=== PATIENT | female | born 1945 | race Caucasian/White ===

== ENCOUNTER 2016-09-24 18:45 | Inpatient (IN) | payer MEDICARE ==
[~2016-09-24] VITALS: Ht 157.5 cm; Wt 54.0 kg
--- NOTE | 2016-09-24 01:00 | NUR ---
PT REQUESTED PAIN MEDICATION. NO ORDERS NOTED AT THIS TIME. CALLED RUSLAN FOR ALFREDO. NEW ORDERS GIVEN FOR PO PAIN MEDICATION DOCUMENTED IN EMAR.
[2016-09-24 19:43] LABS: BASOPHILS 0.2 % (0.0-2.0); EOSINOPHILS 3.8 % (0-7); HEMATOCRIT 44.4 % (36.0-48.0); HEMOGLOBIN 14.4 g/dL (12-16); IMMATURE GRANULOCYTES 0.1 % (0-5); LYMPHOCYTES 35.4 % (15-50); MCH 30.4 pg (26.0-34.0); MCHC 32.4 g/dL (31.0-37.0); MCV 93.9 fL (80.0-100.0); MEAN PLATELET VOLUME 11.5 fL (7.4-10.4); MONOCYTES 8.8 % (2-11); NEUTROPHILS 51.7 % (40-80); PLATELET COUNT 190 10x3/uL (130-400); RBC 4.73 10x6/uL (4.00-5.40); RDW 12.5 % (11.5-14.5)
[2016-09-24 19:53] LABS: APTT 26.3 SECONDS (22.8-39.4); INR 0.99 (0.85-1.17); PROTIME 12.9 SECONDS (11.6-15.0)
[2016-09-24 19:59] LABS: APPEARANCE CLEAR (CLEAR); BILIRUBIN NEGATIVE (NEGATIVE); COLOR YELLOW (YELLOW); GLUCOSE NEGATIVE (NEGATIVE); KETONE NEGATIVE (NEGATIVE); LEUKOCYTE ESTERASE NEGATIVE (NEGATIVE); NITRITE NEGATIVE (NEGATIVE); PROTEIN NEGATIVE (NEGATIVE); UROBILINOGEN NORMAL (NORMAL)
[2016-09-24 19:59] LABS: ALBUMIN 4.2 g/dL (3.4-5.0); ALKALINE PHOSPHATASE 99 U/L (46-116); ALT (SGPT) 18 U/L (10-68); BILIRUBIN - TOTAL 0.27 mg/dL (0.2-1.3); CALC OSMOLALITY 291 mosm/kg (275-300); CALCIUM 8.8 mg/dL (8.5-10.1); CARBON DIOXIDE 33.9 mmol/L (21.0-32.0); CHLORIDE - SERUM 105 mmol/L (98-107); CREATININE - SERUM 0.6 mg/dL (0.6-1.3); GLUCOSE 92 mg/dL (74-106); POTASSIUM - SERUM 4.4 mmol/L (3.5-5.1); PROTEIN - SERUM 7.4 g/dL (6.4-8.2); SODIUM 146 mmol/L (136-145); UREA NITROGEN 14 mg/dL (7-18); eGFR NON AFRICAN AMERICAN > 90 mL/min (90-120)
[2016-09-24 20:09] LABS: CKMB 1.1 U/L (0.0-3.6); CREATINE KINASE 103 UL (21-215)
[2016-09-24 20:17] LABS: TROPONIN-I < 0.017 ng/mL (0.000-0.060)
--- NOTE | 2016-09-24 21:42 | NUR ---
PT TO THE FLOOR FROM ER VIA STRETCHER. AAOX4, RESP EVEN AND UNLABORED ON ROOM AIR.
--- NOTE | 2016-09-24 23:00 | NUR ---
PT'S FRIEND VISITED AND IS CONCERNED ABOUT LULU'S HEALTH AND NEED OF PRIMARY CARE MOVING FORWARD. SHE IS VERY INTERESTED IN FOLLOWING UP WITH DR. FUENTES A PCP. CASEMANAGEMENT TO CONSULT FOR SERVICES.
[2016-09-24 23:15] VITALS: BP 142/47; BMI 21.8
[2016-09-25] VITALS: BP 117/41
--- NOTE | 2016-09-25 03:00 | NUR ---
PT RESTING QUIETLY, RESP EVEN AND UNLABORED ON ROOM AIR, NO S/S OF DISTRESS NOTED, CALL LIGHT IN REACH, WILL CONTINUE TO MONITOR.
[2016-09-25 04:00] VITALS: BP 130/52
--- NOTE | 2016-09-25 07:00 | NUR ---
REPORT RECIEVED ASSUMED CARE. PATIENT IN BED WITH IV INTACT. NO COMPLAINTS. CALL LIGHT WITHIN REACH.
[2016-09-25 08:21] VITALS: BP 121/41
[2016-09-25 11:51] VITALS: BP 128/44
[2016-09-25 12:43] VITALS: Ht 157.5 cm; Wt 54.0 kg
--- NOTE | 2016-09-25 17:00 | NUR ---
PATIENT RECIEVED PAIN MEDS FOR LEFT SHOULDER PAIN AT THIS TIME. NO OTHER COMPLAINTS. CALL LIGHT WITHIN REACH.
[2016-09-25 17:27] VITALS: BP 130/41
--- NOTE | 2016-09-25 18:55 | NUR ---
PATIENT IN BED WITH NO COMPLAINTS AT THIS TIME. IV INTACT. CALL LIGHT WITHIN REACH.
--- NOTE | 2016-09-25 19:00 | NUR ---
PATIENT AAOX4 IN BED. RR EVEN AND UNLABORED. 0 S/S OF DISTRESS. STATES PAIN IS A 9/10 BUT IT IS TOO EARLY FOR PAIN MEDICATION. IV TO RIGHT S/L WITH NO REDNESS OR SWELLING. SCD'S IN ROOM BUT OFF. B/A ON. SRX2. BED LOW. CALL LIGHT WITHIN REACH.
[2016-09-25 20:00] VITALS: BP 182/62
--- NOTE | 2016-09-25 20:00 | NUR ---
PATIENT SITTING IN CHAIR BRUSHING HAIR. LINENS AND GOWN CHANGED.
--- NOTE | 2016-09-25 22:45 | NUR ---
PATIENT BACK IN BED VISITING WITH VISITOR. TELEMETRY INITIATED PER ORDER. NORCO GIVEN FOR PAIN.
[2016-09-26] VITALS: BP 184/59
[2016-09-26 04:00] VITALS: BP 180/57
--- NOTE | 2016-09-26 05:05 | NUR ---
CLONIDINE GIVEN FOR BP OF 180/57. NORCO GIVEN FOR PAIN.
[2016-09-26 06:11] LABS: BASOPHILS 0.2 % (0.0-2.0); HEMATOCRIT 38.8 % (36.0-48.0); HEMOGLOBIN 12.3 g/dL (12-16); IMMATURE GRANULOCYTES 0.2 % (0-5); MCH 29.9 pg (26.0-34.0); MCHC 31.7 g/dL (31.0-37.0); MCV 94.4 fL (80.0-100.0); MEAN PLATELET VOLUME 11.7 fL (7.4-10.4); MONOCYTES 12.3 % (2-11); NEUTROPHILS 50.3 % (40-80); RBC 4.11 10x6/uL (4.00-5.40); RDW 12.6 % (11.5-14.5)
[2016-09-26 06:38] LABS: PLATELET COUNT 151 10x3/uL (130-400); WBC 4.7 10x3/uL (4.8-10.8)
[2016-09-26 06:43] LABS: CALC OSMOLALITY 288 mosm/kg (275-300); CALCIUM 8.3 mg/dL (8.5-10.1); CARBON DIOXIDE 30.1 mmol/L (21.0-32.0); CHLORIDE - SERUM 107 mmol/L (98-107); CHOL - HDL RATIO 2.6 ratio (2.3-4.1); CHOLESTEROL, TOTAL 161 mg/dL (0-200); CREATININE - SERUM 0.6 mg/dL (0.6-1.3); GLUCOSE 89 mg/dL (74-106); HDL CHOLESTEROL 63 mg/dL (32-96); LDL CHOLESTEROL 58 mg/dL (0-100); LDL-HDL RATIO 0.9 ratio (1.5-3.5); SODIUM 145 mmol/L (136-145); UREA NITROGEN 15 mg/dL (7-18); eGFR NON AFRICAN AMERICAN > 90 mL/min (90-120)
[2016-09-26 06:44] LABS: POTASSIUM - SERUM 3.7 mmol/L (3.5-5.1); TRIGLYCERIDE 201 mg/dL (30-200)
--- NOTE | 2016-09-26 07:00 | NUR ---
REPORT RECIEVED ASSUMED CARE. PATIENT IN BED WITH IV INTACT. NO COMPLAINTS. CALL LIGHT WITHIN REACH.
--- NOTE | 2016-09-26 09:15 | NUR ---
Patient Name: LULU SLATER Admission Status: ER Accout number: [id number] Admission Date: 09-24-2016 : 1945 Admission Diagnosis: Attending: ALFREDO Current LOS: 2 Anticipated DC Date: 09-27-2016 Planned Disposition: Home Primary Insurance: MEDICARE A & B Discharge Planning Comments: CM MET WITH PATIENT (BLIND) REGARDING D/C NEEDS AND PLANS. PATIENT STATED SHE LIVES ALONE AND HER LANDLORD (STEVE VIEIRA) WILL DRIVE HER HOME AT DISCHARGE. PATIENT STATED SHE HAS NO STEPS OR STAIRS AT HER HOME. PATIENT STATED SHE HAS NO PCP AND DOES NOT TAKE ANY MEDICATION. PATIENT CHOSE [facility] [address] IF MEDS ARE NEEDED AT DISCHARGE. PATIENT STATED SHE IS INDEPENDENT WITH HER CARE AND HAS NO DME AT HOME. PATIENT STATED THE CONTACT FLORIN SANTILLAN ON HER FACE SHEET HAS . PATIENTS LANDLORD (MR. VIEIRA) TAKES HER WHERE SHE NEEDS TO GO AND HELPS BUY GROCERIES. PATIENT REFUSED HOME HEALTH OR ANY OTHER NEEDS FOR DISCHARGE. CM WILL CONTINUE TO FOLLOW PATIENT WITH D/C NEEDS AND PLANS. PCP NONE [facility] [address] ( [phone] ) STEVE VIEIRA (FRIEND AND LANDLORD) [id number] Chief Medical Physicist: Zakia Skinner Is the patient Alert and Oriented? Yes 0 * How many steps to enter\exit or inside your home? 0 0 * PCP NONE 0 * Pharmacy CHOSE [facility] [address] PATIENT DOES NOT TAKE ANY MEDS 0 * Preadmission Environment Home Alone 0 * ADLs Independent 0 * Equipment None 0 * List name and contact numbers for known caregivers / representatives who currently or will assist patient after discharge: STEVE VIEIRA (LANDLORD-FRIEND) [phone] * Community resources currently utilized None 0 * Additional services required to return to the preadmission environment? Yes 0 * Can the patient safely return to the preadmission environment? Yes 0 * Has this patient been hospitalized within the prior 30 days at any hospital? No 0 Grand Total: 0
[2016-09-26 09:44] VITALS: BP 113/54
[2016-09-26 11:11] VITALS: BP 120/64
[2016-09-26 15:50] VITALS: BP 103/61
--- NOTE | 2016-09-26 16:00 | NUR ---
PATIENT ASSISTED TO SHOWER AT THIS TIME. BED CHANGED, PATIENT IN SHOWER WITH NO COMPLAINTS. ASSISTED BACK TO BED, TEETH BRUSHED, CALL LIGHT WITHIN REACH.
--- NOTE | 2016-09-26 18:30 | NUR ---
PATIENT IN BED WITH IV INTACT. NO COMPLAINTS AT THIS TIME. CALL REJIW TAMIKO MULTANI. STATED HER RIGHT ARM IS BETTER TODAY AND IS ABLE TO MOVE IT MORE WITHOUT PAIN.
--- NOTE | 2016-09-26 19:40 | NUR ---
RECIEVED SHIFT REPORT. PT IS LYING IN BED. ALERT AND ORIENTED AND ABLE TO VERBALIZE NEEDS. IV IS PATENT AND SALINE LOC AT THIS TIME. PT IS AMBULATORY WITH ASSISTANCE. PT STATES PAIN IS 3/10. NO NEEDS ARE VERBALIZED AT THIS TIME. WILL CONTINUE TO MONITOR. SIDE RAILS ARE UP X 2. BED IS IN LOWEST POSITION. CALL LIGHT IS WITHIN REACH.
--- NOTE | 2016-09-26 20:16 | NUR ---
SHIFT ASSESSMENT COMPLETED. PT C/O PAIN 12/11. ADMINISTERED PRESCRIBED PRN NORCO PER ORDER. NO FURTHER NEEDS ARE VOICED. WILL MONITOR. SIDE RAILS X 2. BED LOW. CALL LIGHT IN REACH.
[2016-09-26 20:32] VITALS: BP 132/57
[2016-09-27 04:00] VITALS: BP 131/40
--- NOTE | 2016-09-27 07:32 | NUR ---
WALKING ROUNDS,WITHOUT DISTRESS.ASSESSMENT PER FLOW SHEET.PT UP AT BEDSIDE.PLAN OF CARE REVIEWED.CALL LIGHT IN REACH
[2016-09-27 08:09] VITALS: BP 123/49
--- NOTE | 2016-09-27 09:49 | NUR ---
SITTING UP AT BEDSIDE,WITHOUT DISTRESS.SHOWER AND MAKE UP.CALL LIGHT IN REACH
--- NOTE | 2016-09-27 10:27 | NUR ---
CM REASSESSMENT NOTE: PATIENT HAS AGREED TO HOME HEALTH AND REFERRAL WILL BE SENT TO [facility] AND THE DREW FORM SIGNED. PATIENT HAS NO OTHER NEEDS FOR DISCHARGE. THE IMM WAS SERVED AND SIGNED.
[2016-09-27] MEDS ORDERED: CATAPRES0.1 MG PO (10:38)
[2016-09-27] MEDS ORDERED: ZOLOFT50 MG PO (10:38)
[2016-09-27] MEDS ORDERED: ECOTRIN325 MG PO (10:38)
[2016-09-27 11:26] LABS: BASOPHILS 0.3 % (0.0-2.0); EOSINOPHILS 2.8 % (0-7); HEMATOCRIT 38.1 % (36.0-48.0); HEMOGLOBIN 12.1 g/dL (12-16); IMMATURE GRANULOCYTES 0.1 % (0-5); LYMPHOCYTES 30.6 % (15-50); MCH 30.2 pg (26.0-34.0); MCHC 31.8 g/dL (31.0-37.0); MEAN PLATELET VOLUME 11.7 fL (7.4-10.4); MONOCYTES 11.5 % (2-11); NEUTROPHILS 54.7 % (40-80); PLATELET COUNT 142 10x3/uL (130-400); RBC 4.01 10x6/uL (4.00-5.40); RDW 12.3 % (11.5-14.5)
[2016-09-27 11:38] LABS: WBC 7.2 10x3/uL (4.8-10.8)
[2016-09-27 11:40] VITALS: BP 151/51
[2016-09-27 11:49] LABS: ALBUMIN 3.1 g/dL (3.4-5.0); ALKALINE PHOSPHATASE 180 U/L (46-116); ALT (SGPT) 130 U/L (10-68); BILIRUBIN - TOTAL 0.42 mg/dL (0.2-1.3); CALC OSMOLALITY 282 mosm/kg (275-300); CALCIUM 8.3 mg/dL (8.5-10.1); CARBON DIOXIDE 35.5 mmol/L (21.0-32.0); CHLORIDE - SERUM 104 mmol/L (98-107); CREATININE - SERUM 0.5 mg/dL (0.6-1.3); GLUCOSE 100 mg/dL (74-106); POTASSIUM - SERUM 3.7 mmol/L (3.5-5.1); PROTEIN - SERUM 6.5 g/dL (6.4-8.2); SODIUM 142 mmol/L (136-145); UREA NITROGEN 12 mg/dL (7-18); eGFR NON AFRICAN AMERICAN > 90 mL/min (90-120)
--- NOTE | 2016-09-27 14:30 | NUR ---
DISCHARGE INSTRUCTIONS BY TOMMY KAT RN.PT STATES UNDERSTANDING.IV DCD WITH CATH INTACT.
--- NOTE | 2016-09-27 15:31 | NUR ---
LEFT UNIT VIA WHEELCHAIR FOR TRANSPORT HOME
--- NOTE | 2016-10-01 14:54 | EC ---
PATIENT:LULU SLATER DATE OF SERVICE: 09/24/16 SEX: F MEDICAL RECORD: [id number] DATE OF : [birth year] LOCATION:D.MS Nguyen221 AGE OF PATIENT: 71 ADMISSION DATE: 09/24/16 REFERRING PHYSICIAN: INTERPRETING PHYSICIAN: NAPOLEON ZUNIGA M.D. ECHOCARDIOGRAM REPORT ECHO CHARGES 4 ECHO COMPLETE CLINICAL DIAGNOSIS: TIA HX CAD/STENTS ECHOCARDIOGRAPHIC MEASUREMENTS (adult normal given) AC root (d.<3.7cm) 3.7 LV Septum d (<1.2 cm> 14.3 Valve Excursion 2.3 LV Septum (systole) 1.6 Left Atria (s.<4.0cm> 3.2 LVPW d(<1.2cm) 1.5 RV (d.<2.3cm) 2.6 LVPW (sytole) 1.8 LV diastole(<5.6CM) 4.6 MV E-F(>70mm/sec) LV systole 2.7 LVOT Diameter 1.7 MV exc.(>10mm) 1.3 Est.ejection fraction (50-75%) Pericardial Effusion N DOPPLER: LVIT A 43.0 E 116 LA RVSP 36 LVOT 104 AOP1/2T Asc. Ao 171 RVOT 82 RA PA 103 AV Gradient Peak 11.65 AV Mean 5.62 AV Area 1.6 MV Gradient Peak 11.0 MV Mean 3.0 MV Area COMMENTS: Cementer Machine Applicator: Lelo ZAMARRIPA Vp Packaging:2 Dr. Zuniga TAPE# PACS DATE OF SERVICE: 09/26/2016 REFERRING PHYSICIAN: Jun Navarrete MD. INDICATION: TIA, coronary artery disease. DESCRIPTION: Left ventricle appears normal size and function. No wall motion abnormalities are noted, ejection fraction is 55%. Mitral valve is structurally normal. There is mild regurgitation seen. Left atrium is normal in size. The aortic valve is trileaflet. There is no stenosis or regurgitation seen. The ECHOCARDIOGRAM REPORT [id number] LULU SLATER right ventricle is mildly dilated. Tricuspid valve is normal. There is mild regurgitation noted. Right atrium is normal size. There is no pericardial effusion seen. IMPRESSION: 1. Normal left ventricular size and function, ejection fraction 55%. 2. No evidence of any mass or thrombus in the left ventricle apex. 3. Mild mitral regurgitation. 4. Mild tricuspid regurgitation. TRANSINT:[id number] Voice Confirmation ID: [id number] DOCUMENT ID: [id number] NAPOLEON ZUNIGA M.D. at 1454 CC: [id number] DICTATION DATE: 09/26/16 1348 BLADE CHANGER: 09/27/16 0021 DIS IN 09/27/16 [place] [id number] [place] [id number]
== END 2016-09-27 15:33 | disposition home health service (06) | DRG 69 ==
LOC: D.ER 18:45 → D.MS 20:07
PROVIDERS: Family Medicine; Nurse Practitioner Acute Care; ADMIT Family Medicine
DX: G45.9 Transient cerebral ischemic attack, unspecified (principal); I16.0 Hypertensive urgency; R53.1 Weakness; H54.0 Blindness, both eyes; S43.402A Unspecified sprain of left shoulder joint, initial encounter; X58.XXXA Exposure to other specified factors, initial encounter

== ENCOUNTER 2016-10-13 13:09 | Emergency (ER) | payer MEDICARE ==
[2016-09-25 12:43] VITALS: BMI 21.7
[~2016-10-13 13:09] MED LIST: CATAPRES0.1 MG PO; ECOTRIN325 MG PO; ZOLOFT50 MG PO
[2016-10-13 14:37] LABS: BASOPHILS 0.3 % (0.0-2.0); EOSINOPHILS 3.6 % (0-7); HEMOGLOBIN 13.6 g/dL (12-16); IMMATURE GRANULOCYTES 0.2 % (0-5); LYMPHOCYTES 27.9 % (15-50); MCH 30.6 pg (26.0-34.0); MCHC 32.4 g/dL (31.0-37.0); MCV 94.4 fL (80.0-100.0); MEAN PLATELET VOLUME 11.7 fL (7.4-10.4); MONOCYTES 8.4 % (2-11); NEUTROPHILS 59.6 % (40-80); RBC 4.45 10x6/uL (4.00-5.40); RDW 12.2 % (11.5-14.5); WBC 6.4 10x3/uL (4.8-10.8)
[2016-10-13 14:38] LABS: PLATELET COUNT 179 10x3/uL (130-400)
[2016-10-13 14:48] LABS: ALBUMIN 3.6 g/dL (3.4-5.0); ALKALINE PHOSPHATASE 109 U/L (46-116); ALT (SGPT) 22 U/L (10-68); CALC OSMOLALITY 278 mosm/kg (275-300); CALCIUM 9.2 mg/dL (8.5-10.1); CHLORIDE - SERUM 104 mmol/L (98-107); CREATININE - SERUM 0.7 mg/dL (0.6-1.3); GLUCOSE 89 mg/dL (74-106); POTASSIUM - SERUM 3.9 mmol/L (3.5-5.1); PROTEIN - SERUM 6.9 g/dL (6.4-8.2); SODIUM 141 mmol/L (136-145); UREA NITROGEN 9 mg/dL (7-18); eGFR NON AFRICAN AMERICAN 88 mL/min (90-120)
[2016-10-13 15:26] LABS: APPEARANCE CLEAR (CLEAR); BILIRUBIN NEGATIVE (NEGATIVE); COLOR YELLOW (YELLOW); GLUCOSE NEGATIVE (NEGATIVE); KETONE NEGATIVE (NEGATIVE); LEUKOCYTE ESTERASE NEGATIVE (NEGATIVE); NITRITE NEGATIVE (NEGATIVE); PROTEIN NEGATIVE (NEGATIVE); UROBILINOGEN NORMAL (NORMAL)
== END 2016-10-13 18:26 | disposition home or self-care (01) ==
LOC: D.ER 13:09
PROVIDERS: Family Medicine
DX: I10 Essential (primary) hypertension (principal); F32.9 Major depressive disorder, single episode, unspecified; T16.1XXA Foreign body in right ear, initial encounter; X58.XXXA Exposure to other specified factors, initial encounter; Y93.89 Activity, other specified; Y92.89 Other specified places as the place of occurrence of the external cause; H60.501 Unspecified acute noninfective otitis externa, right ear; F17.200 Nicotine dependence, unspecified, uncomplicated

== ENCOUNTER → 2016-11-04 19:10 | Outpatient (CLI) | payer MEDICARE ==
[2016-09-25 12:43] VITALS: BMI 21.7
[2016-11-04 20:00] LABS: APPEARANCE CLEAR (CLEAR); BILIRUBIN NEGATIVE (NEGATIVE); COLOR YELLOW (YELLOW); GLUCOSE NEGATIVE (NEGATIVE); KETONE NEGATIVE (NEGATIVE); LEUKOCYTE ESTERASE NEGATIVE (NEGATIVE); NITRITE NEGATIVE (NEGATIVE); PROTEIN 1+ mg/dL (NEGATIVE); SPECIFIC GRAVITY 1.015 (1.005-1.020); UROBILINOGEN NORMAL (NORMAL)
[2016-11-04 20:03] LABS: BACTERIA NONE SEEN /hpf (NONE SEEN); EPITHELIAL CELLS 0-5 /hpf (0-5); RED CELLS - URINE 0-5 /hpf (0-5); WHITE CELLS - URINE NSEEN /hpf (0-5)
== END | disposition home or self-care (01) ==
LOC: D.LABREF 19:10
PROVIDERS: Family Medicine
DX: I10 Essential (primary) hypertension (principal); R32 Unspecified urinary incontinence

== ENCOUNTER 2019-03-23 11:07 | Inpatient (IN) | payer MEDICARE ==
[~2019-03-23] VITALS: Ht 162.6 cm; Wt 61.2 kg
[2019-03-23 11:48] LABS: HEMATOCRIT 39.3 % (36.0-48.0); HEMOGLOBIN 12.9 g/dL (12-16); LYMPHOCYTES 37.2 % (15-50); MCH 29.4 pg (26.0-34.0); MCHC 32.8 g/dL (31.0-37.0); MCV 89.5 fL (80.0-100.0); MEAN PLATELET VOLUME 11.1 fL (7.4-10.4); NEUTROPHILS 58.6 % (40-80); PLATELET COUNT 145 10x3/uL (130-400); RBC 4.39 10x6/uL (4.00-5.40); RDW 11.7 % (11.5-14.5); WBC 6.5 10x3/uL (4.8-10.8)
[2019-03-23 11:55] LABS: APTT 27.5 SECONDS (22.8-39.4); INR 1.02 (0.85-1.17); PROTIME 12.9 SECONDS (11.6-15.0)
[2019-03-23 11:59] LABS: ALBUMIN 3.6 g/dL (3.4-5.0); ALKALINE PHOSPHATASE 93 U/L (46-116); ALT (SGPT) 16 U/L (10-68); CALC OSMOLALITY 294 mosm/kg (275-300); CALCIUM 9.2 mg/dL (8.5-10.1); CARBON DIOXIDE 31.9 mmol/L (21.0-32.0); CHLORIDE - SERUM 107 mmol/L (98-107); CREATININE - SERUM 0.8 mg/dL (0.6-1.3); GLUCOSE 128 mg/dL (74-106); POTASSIUM - SERUM 3.5 mmol/L (3.5-5.1); PROTEIN - SERUM 7.3 g/dL (6.4-8.2); SODIUM 146 mmol/L (136-145); UREA NITROGEN 18 mg/dL (7-18); eGFR NON AFRICAN AMERICAN 75 mL/min (90-120)
[2019-03-23 12:26] LABS: CHOLESTEROL, TOTAL 147 mg/dL (0-200); HDL CHOLESTEROL 73 mg/dL (32-96); LDL CHOLESTEROL 61 mg/dL (0-100); LDL-HDL RATIO 0.8 ratio (1.5-3.5); MAGNESIUM - SERUM 1.8 mg/dL (1.8-2.4); THYROID STIMULATING HORMONE 1.64 uIU/mL (0.36-3.74); TRIGLYCERIDE 68 mg/dL (30-200)
--- NOTE | 2019-03-23 12:50 | NUR ---
HAND OFF REPORT RECEIVED FROM RAVEN SOSA.
--- NOTE | 2019-03-23 14:11 | NUR ---
DAUGHTER AND GRANDDAUGHTER AT BEDSIDE, STATED "HOTEL MANAGER TOOK PT HERE."
--- NOTE | 2019-03-23 14:30 | NUR ---
PT ACCEPTED FROM [facility].
[2019-03-23 14:39] LABS: APPEARANCE CLOUDY (CLEAR); BILIRUBIN NEGATIVE (NEGATIVE); COLOR YELLOW (YELLOW); GLUCOSE NEGATIVE (NEGATIVE); KETONE NEGATIVE (NEGATIVE); NITRITE POSITIVE (NEGATIVE); PROTEIN TRACE mg/dL (NEGATIVE); SPECIFIC GRAVITY 1.005 (1.005-1.020); UDS - AMPHET NEGATIVE QUAL (NEGATIVE); UDS - BARB NEGATIVE QUAL (NEGATIVE); UDS - BENZO NEGATIVE QUAL (NEGATIVE); UDS - COCAINE NEGATIVE QUAL (NEGATIVE); UDS - OPIATE NEGATIVE QUAL (NEGATIVE); UDS - PCP NEGATIVE QUAL (NEGATIVE); UDS - THC NEGATIVE QUAL (NEGATIVE); UROBILINOGEN NORMAL (NORMAL)
[2019-03-23 14:40] LABS: BACTERIA MANY /hpf (NEGATIVE); EPITHELIAL CELLS 0-5 /hpf (0-5); MUCUS <1+ /lpf (NONE SEEN); RED CELLS - URINE RARE /hpf (0-5)
[2019-03-23 14:50] VITALS: BP 154/79
[2019-03-23] MEDS ORDERED: TRAZODONE HCL150 MG PO (16:36)
[2019-03-23] MEDS ORDERED: LIPITOR20 MG PO (16:36)
[2019-03-23] MEDS ORDERED: DILANTIN100 MG PO (17:07)
--- NOTE | 2019-03-23 17:45 | NUR ---
The patient is admitted from the medical floor. Apprently she is acutely psychotic. She is ambulatory, but she is blind. She is labile. At first she said she was ok to be here. Asked her if she wanted to be a DNR or a full code this question irritated her and she then said "I want to go home now." Joked with her a few minutes and she calmed down. She does have a rash on her chest and her buttocks.
[2019-03-23 19:25] VITALS: BP 152/110; BMI 22.3
[2019-03-23 21:26] VITALS: BP 110/55
[2019-03-24 07:36] LABS: LDL-HDL RATIO 0.8 ratio (1.5-3.5); PHENYTOIN (DILANTIN) 0.8 ug/mL (10.0-20.0); THYROID STIMULATING HORMONE 1.57 uIU/mL (0.36-3.74)
--- NOTE | 2019-03-24 08:28 | NUR ---
B) The patient is labile in affect. She is laughing and joking one minute, then irritable the next. She ambulates, but she is blind. A lot of questions that staff ask she will say "I can't remember or I don't know." I) Provide prescribed meds. R) The patient says she needs her seizure meds and she needs her depression meds. P) Continue POC.
[2019-03-24 10:35] VITALS: BMI 22.3
[2019-03-24 14:47] VITALS: Ht 162.6 cm; Wt 61.2 kg
--- NOTE | 2019-03-24 18:29 | NUR ---
PT IS UPSET STATING "THEY DIDN'T TELL ME ANYTHING. THEY FRANCHESKA GET ME HOME SOON THEY CAN. [facility]ING [facility]. Y'ALL CAN'T DO THIS TO ME. I DON'T WANT ANYONE TO TAKE CARE OF ME. I DID NOT LEARN ALL OF THAT FOR ME TO BE IN A PLACE LIKE THIS" PT LAUGHS OUT LOUD TO HERSELF, TALKS TO PEOPLE NOT THERE. PT CAN BE PLESANT AT TIMES.
[2019-03-24 19:10] VITALS: BP 190/86
[2019-03-24 20:36] VITALS: BP 185/66
--- NOTE | 2019-03-24 21:30 | NUR ---
REC'D IN DAYROOM. AMBULATORY HOWEVER IS BLIND. DOES NOT INTERACT WITH PEERS HOWEVER TALKS WITH STAFF WHEN APPROACHED. RASH ON CHEST AND BUTTOCKS. ORIENTED TO SELF AND PLACE. ADMINISTER MEDS PER ORDERS Q SHIFT AND MONITOR COMPLIANCE. MONITOR FOR DISRUPTIVE BEHAVIORS IE THROWING THINGS AND CURSING AND REDIRECT NEEDED. MED COMPLIANT. NO DISRUPTIVE BEHAVIOR OBSERVED AND COOPERATIVE WITH STAFF REQUEST. CONTINUE POC AND PROVIDE SAFE ENVIRONMENT.
--- NOTE | 2019-03-24 22:45 | NUR ---
PATIENT IS PLEASANT, COMPLIANT WITH MEDS, CAN MAKE NEEDS KNOWN, NOT WITNESSING ANY HALLUCINATIONS AT THIS TIME. WILL FOLLOW POC
[2019-03-25 08:00] VITALS: BP 141/76
--- NOTE | 2019-03-25 16:48 | NUR ---
PT IS AWAKE AND ALERT TO PERSON ONLY. CALM AND COOPERATIVE WITH ASSESSMENT. MED COMPLAINT. REDIRECT AND REORIENT NEEDED. NO BEHAVIORS NOTED AT THIS TIME. FALL PRECAUTIONS IN PLACE. WILL CPOC.
--- NOTE | 2019-03-25 20:39 | NUR ---
RECEIVED IN DAYROOM. SITTING IN A CHAIR WITH PEERS AT HER SIDE. HAVING HALLUCINATIONS AT TIMES. STATING THAT SHE IS SEEING A WOMAN AND GOD WILL TAKE CARE OF HER. REDIERECT AND REORIENT NEEDED. IN BATHROOM WITH MHT ASSISTING HER AT THIS TIME. CONTINUE PLAN OF CARE
[2019-03-25 22:48] VITALS: BP 125/83
[2019-03-26 08:00] VITALS: BP 132/66
--- NOTE | 2019-03-26 16:24 | NUR ---
PT IS AWAKE AND ALERT TO PERSON ONLY. PT SITTING IN DAYROOM WITH PEERS. CALM AND COOPERATIVE WITH ASSESSMENT. MED COMPLIANT. PT DOES TALK TO UNSEEN OTHERS. REDIRECT AND REORIENT NEEDED. FALL PRECAUTIONS IN PLACE. WILL CPOC.
[2019-03-26 20:23] VITALS: BP 143/89
--- NOTE | 2019-03-26 22:11 | NUR ---
RECEIVED IN DAYROOM. SITTING QUIETLY IN A CHAIR WITH PEERS AT HER SIDE. CALM AND COOPERATIVE WITH CARE AND ASSESSMENT. NO SIGNS OF AGGRESSION. REDIERCT AND REORIENT NEEDED. RESTING CALMLY AT THIS TIME. CONTINUE PLAN OF CARE
[2019-03-27 08:00] VITALS: BP 113/62
[2019-03-27 08:11] LABS: RAPID PLASMA REAGIN Non Reactive (Non Reactive)
--- NOTE | 2019-03-27 12:54 | NUR ---
PT IS AWAKE AND ALERT TO PERSON. CALM AND COOERATIVE WITH ASSESSMENT. MED COMPLIANT. REDIRECT AND REORIENT NEEDED. FALL PRECAUTIONS IN PLACE. WILL CPOC.
[2019-03-27 20:10] VITALS: BP 120/65
--- NOTE | 2019-03-27 22:53 | NUR ---
RECEIVED IN DAYROOM. SITTING IN A CHAIR WITH PEERS AT HER SIDE. CALM AND COOPERATIVE WITH CARE AND ASSESSMENT. IN GOOD SPIRITS. REDIRECT AND REORIENT NEEDED. RESTING IN BED WITH EYES CLOSED AT THIS TIME. CONTINUE PLAN OF CARE
[2019-03-28 09:11] VITALS: BP 143/85
--- NOTE | 2019-03-28 13:26 | NUR ---
PATIENT IS ALERT AND ORIENTED TO PERSON ONLY, COMPLIANT WITH MEDICATIONS. CALM AND COOPERATIVE WITH CARE AND ASSESSMENT. REDIRECT AND REORIENT NEEDED. FALL PRECAUTIONS IN PLACE. WILL CPOC.
[2019-03-28 20:55] VITALS: BP 143/81
--- NOTE | 2019-03-29 01:54 | NUR ---
REC'D SITTING IN THE DAYROOM. PATIENT IS BLIND HOWEVER RELATES SHE LIVES ALONE AND CARES FOR HERSELF. RELATES SHE DIDN'T KNOW SHE WAS COMING HERE AND DOES NOT KNOW HOW SHE GOT HERE. WANTING NURSE TO CHECK TO SEE HOW SHE GOT HERE. BECOMES FRUSTRATED WITH OTHER PATIENTS WHEN THEY ARE DOING REPETATIVE BEHAVIORS OR NOISES. OBSERVED CURSING FOR NO REASON AND WHEN ASKED THE REASON SHE WAS CURSING SHE RELATED SHE WAS CUSSING AT THESE PEOPLE POINTING IN THE DIRECTION WHERE NOBODY WAS SITTING. IMPATIENT AND BECOMES AGITATED IF HAS TO WAIT FOR WHAT SHE IS WANTING. ADMINISTER MEDS PER ORDERS Q SHIFT AND MONITOR COMPLIANCE. REDIRECT FOR CURSING AND DISRUPTIVE BEHAVIOR. MED COMPLIANT. WHEN BEING REDIRECTED PATIENT WILL RELATE DON'T USE MY BLINDNESS AGAINST ME. CONTINUE POC AND PROVIDE SAFE ENVIRONMENT.
[2019-03-29 09:26] VITALS: BP 135/75
--- NOTE | 2019-03-29 10:11 | NUR ---
B) The patient is awake and alert. She is pleasant. She is labile, but quiet at this time. She has not shown any aggression today. She is sitting away from others and she is appropriate in speech and interactions. I) Provide prescribed meds. R) The patient is compliant with meds and unit milieu. P) Continue POC.
--- NOTE | 2019-03-29 12:42 | NUR ---
NUTRITION F/U CHART REVIEWED. PT TOLERATING REG DIET WITH 100% INTAKE MEALS. WT STABLE. WILL CONTINUE TO PROVIDE DIET AND MONITOR. RD FOLLOWING
[2019-03-29 20:01] VITALS: BP 134/84
--- NOTE | 2019-03-29 23:15 | NUR ---
PATIENT IS ORIENTED TO SELF AND SITUATION, SHE ALSO KNOWS THAT SHE IS IN THE HOSPITAL, SHE IS COMPLIANT WITH MEDS, SHE DOES HAVE HALLUCINATIONS THAT SHE BECOMES AGGRAVATED WITH AND HOLLERS AND USES PROFANTITY BUT SHE DID NOT DO THAT THIS EVENING. CAN MAKE NEEDS KNOWN. WILL FOLLOW POC
--- NOTE | 2019-03-30 08:00 | NUR ---
B) The patient is awake, she is unable to see, but she ambulates with some assistance. She is pleasant and calm. She is interacting with staff and peers. No hallucinations noted today and no inappropriate laughing noted. I) Provide prescribed meds. R) The patient is compliant with meds. P) Continue POC.
[2019-03-30 08:30] VITALS: BP 137/64
[2019-03-30 20:00] VITALS: BP 121/76
--- NOTE | 2019-03-31 00:42 | NUR ---
B.) PT IS ALERT AND ORIENTED TO SELF AND SITUATION. SHE AMBULATES WITH ASSISTANCE. PT HAS ATHLETE'S FEET ON HER FEET, A RASH ON HER RIGHT CHEST, AND RIGHT BUTTOCK. PT STATES SORENESS IN HER RIGHT SHOULDER. I.) PROVIDED PM MEDICATION, APPLIED TOPICAL OINTMENT ORDERED TO 3 LOCATIONS, AND VOLTAREN GEL TO HER SHOULDER. R.) COMPLIANT WITH ALL MEDICATIONS. P.) CONTINUE PLAN OF CARE
[2019-03-31 08:00] VITALS: BP 118/79
--- NOTE | 2019-03-31 10:28 | NUR ---
B) The patient is awake and alert, she is pleasant. She is positive and she is encouraging to other patients and staff. She is blind and she needs assist with ambulating places and knowing her meds. She is not mentioning any hallucinations today. I) Provide prescribed meds. R) The patient is compliant with meds. P) Continue POC.
--- NOTE | 2019-03-31 14:30 | NUR ---
The patient has asked multiple times to call her son because she says he does not know where she is and she is sure he would come pick her up. She says she is turned around she thinks it is night time. Tried to redirect and it took several times telling her and now she is engaged in a conversation with another patient.
[2019-03-31 21:05] VITALS: BP 170/47
--- NOTE | 2019-03-31 22:52 | NUR ---
B.) PT IS ASLEEP ON COUCH IN DAYROOM. AROUSES TO VOICE EASILY. SHE IS PLEASANT AND COOPERATIVE. SHE IS ABLE TO MAKE HER NEEDS KNOWN. I.) PROVIDED PM MEDICATIONS. R.) COMPLIANT WITH ALL MEDICATIONS. P.) CONTINUE PLAN OF CARE.
[2019-04-01 08:00] VITALS: BP 143/73
--- NOTE | 2019-04-01 11:00 | NUR ---
B) PATIENT IS AWAKE AND ALERT, ORIENTED TO PERSON AND SITUATION. CALM AND COOPERATIVE WITH CARE AND ASSESSMENT. SHE IS BLIND AND NEEDS TO BE GUIDED TO PLACES. SHE IS PLEASANT AND SOCIABLE WITH STAFF AND PEERS. I) ADMINISTER PRESCRIBED MEDICATIONS. REDIRECT AND REORIENT NEEDED. R) COMPLIANT WITH MEDICATIONS. NO BEHAVIORS NOTED. P) CONTINUE PLAN OF CARE.
--- NOTE | 2019-04-01 20:30 | NUR ---
RECEIVED IN DAYROOM. SITTING IN A CHAIR WITH PEERS AT HER SIDE. CALM AND COOPERATIVE WITH CARE AND ASSESSMENT. NO SIGNS OF AGGRESSION. REDIRECT AND REORIENT NEEDED. CONTINUES TO SIT CALMLY IN CHAIR. CONTINUE PLAN OF CARE
--- NOTE | 2019-04-01 21:12 | NUR ---
PATIENT STATED ANXIETY AND REQUEST SOMETHING FOR ANXIETY. PRN ATIVAN 0.5 MG PO GIVEN FOR ANXIETY.
--- NOTE | 2019-04-01 22:15 | NUR ---
RESTING IN BED WITH EYES CLOSED AT THIS TIME.
[2019-04-01 22:56] VITALS: BP 125/73
[2019-04-02 08:00] VITALS: BP 199/73
--- NOTE | 2019-04-02 08:30 | NUR ---
B/P = 126/90 PULSE= 78 VITAL SIGNS RECHECKED
--- NOTE | 2019-04-02 10:45 | NUR ---
B) PATIENT IS ALERT AND ORIENTED TO SELF AND SITUATION. AMBULATORY WITH ONE PERSON ASSIST. CALM AND COOPERATIVE WITH CARE AND ASSESSMENT. I) ADMINISTER PRESCRIBED MEDICATIONS, CREAM APPLIED TO 3 ATHELET SKIN AREAS, AND OINTMENT APPLIED TO KNEES. R) COMPLIANT WITH ALL MEDICATIONS. REDIRECTS EASILY. P) WILL CONTINUE PLAN OF CARE.
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
--- NOTE | 2019-04-02 12:28 | PN ---
PATIENT:LULU SLATER MEDICAL RECORD: [id number] LOCATION:[facility] Maldonado ADMISSION DATE: 03/23/19 PROGRESS NOTE DATE OF SERVICE: 03/27/2019 SUBJECTIVE: Ms. Slater is a 74-year-old female who was admitted after the trust manager assistant in a motel that she has been staying at brought her to the Emergency Room because she was throwing things, dropping things, obsessive, cursing and we have seen some of that behavior. Yesterday, she was overly exuberant. The patient, on interview today, was calm, pleasant and appropriate. Nursing report says that she has been a little less exuberant, not singing out spontaneously, not parroting other people's conversations as much. She slept 7.75 hours, eating 100% to 175%. Last bowel movement was 23. LAST VITAL SIGNS: 98.1, 63, 18, 113/62, 95%. ASSESSMENT: Unchanged. PLAN: I will get Depakote trough level in 2 days. Discharge disposition is still very much up in the air. She came from a motel apparently and we had a hard time sorting out her social situation with her family and being able to get in touch with any of them. We will work closely with case management to see what a minimum level of structure is needed for this patient. Case discussed with nursing. Chart reviewed and the patient interviewed. TRANSINT:[id number] Voice Confirmation ID: [id number] DOCUMENT ID: [id number] DORETHA MOMIN MD at 1228 CC: [id number] DICTATION DATE: 03/27/19 1528 FREIGHT TRAFFIC CONSULTANT: 03/28/19 0020 ADM IN [place] [id number] [place] [address]
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
--- NOTE | 2019-04-02 12:28 | PN ---
PATIENT:LULU SLATER MEDICAL RECORD: [id number] LOCATION:[facility] Nguyen113 ADMISSION DATE: 03/23/19 PROGRESS NOTE DATE OF SERVICE: 03/26/2019 SUBJECTIVE: Ms. Slater is a 74-year-old female who has had a long history apparently of schizoaffective disorder, unclear whether she has been living in a hotel or her family merely dropped her off at one recently. The patient and chart conflicted on this. The patient has been laughing inappropriately, singing impromptu. She is parroting the conversations of those around her. She, however, is sleeping, slept 8 hours. On interview, she was overly broad, almost nonsensical. She has a history of seizures, but said that she has not been taking seizure meds, eating 75, 90, and 100%. Last bowel movement was on . Her latest vitals are 98.2, 66, 17, 132/66, and 97%. ASSESSMENT: Unchanged. PLAN: Currently on psychotropics of Depakote and Seroquel, which she has been on in the past according to records. We will get a Depakote trough level in the next few days. We will continue to monitor sleep as for Seroquel dosing and continue to UTI treatment. Case discussed with nursing, chart reviewed and patient interviewed. TRANSINT:[id number] Voice Confirmation ID: [id number] DOCUMENT ID: [id number] DORETHA MOMIN MD at 1228 CC: [id number] DICTATION DATE: 03/26/19 1514 BREAKER TENDER: 03/27/19 0106 ADM IN [id number] [place] [address]
--- NOTE | 2019-04-02 12:28 | PN ---
PATIENT:LULU SLATER MEDICAL RECORD: [id number] LOCATION:[facility] Nguyen113 ADMISSION DATE: 03/23/19 PROGRESS NOTE DATE OF SERVICE: 03/30/2019 SUBJECTIVE: The patient is a 74-year-old female whose family dropped off at a hotel, has a history of seizures, blind, throwing things, aggressive behavior. She has a history of schizoaffective disorder and had been by her own admission noncompliant with meds. Her mentation has cleared quickly. However, yesterday she was saying that she wanted to go live in the [facility] apartment by herself. Today, she had come in abrupt change of heart and I believe might be secondary just so wished to discharge and wants to go back to the [facility] where she indeed does have more support there. She slept 8.75 hours, eating 100%, 85%, and 100%. Last bowel movement on . Her latest vital signs are 98.6, 51, 20, 137/64, 93%. Notably, her repeat Depakote what was actually a trough level came from 121.8 at peak to 76.6 at trough. So, now, we will continue current Depakote dosing. Case discussed with nursing. Chart reviewed and the patient interviewed. Anticipate discharge in the next several days if adequate discharge disposition can be arranged discussed. TRANSINT:[id number] Voice Confirmation ID: [id number] DOCUMENT ID: [id number] DORETHA MOMIN MD at 1228 CC: [id number] DICTATION DATE: 03/30/19 1327 LIGHT BULB TESTER: 03/30/19 2108 ADM IN [place] [id number] [place] [address]
--- NOTE | 2019-04-02 12:28 | PN ---
PATIENT:LULU SLATER MEDICAL RECORD: [id number] LOCATION:[facility] Nguyen113 ADMISSION DATE: 03/23/19 PROGRESS NOTE DATE OF SERVICE: 03/29/2019 SUBJECTIVE: Ms. Slater is a 74-year-old female, blind with a history of seizures and schizoaffective disorder who has been living at a motel with apparently a lot of help from her food operations manager with very little family involvement. She decided to come off her meds and had gotten increasingly agitated and apparently torn up to hotel room. The patient's behaviors have gotten increasingly improved. At first, she was loud, singing, and exuberant. Now, she is more calm and subdued. Nursing reports that most of any symptomatology is at night where she gets a little confused and agitated. She told me today that she does not wish to return to the motel, and she wants to get her own apartment; however, considering her limitations, this seems unlikely. We will have the social sciences research scientist talk to her about options. She is sleeping 8.25 hours, eating 100% of meals. Last bowel movement , her latest vital signs are 98.2, 61, 18, 135/75, and 96%. Her valproic acid level from today was 121.8; however, it is unclear whether this was done as a trough or appears to have been done at peak level. Considering her history of seizure disorders, her continuing behavior grandiosity, especially at night, we will redo this Depakote level as an official trough to see what her official trough level is before changing dosing. Case discussed with nursing, chart reviewed, and patient interviewed. TRANSINT:[id number] Voice Confirmation ID: [id number] DOCUMENT ID: [id number] DORETHA MOMIN MD at 1228 CC: [id number] DICTATION DATE: 03/29/19 1626 NETWORK CONTROL OPERATORS SUPERVISOR: 03/30/19 0148 ADM IN [address] [place] [address]
--- NOTE | 2019-04-02 15:20 | NUR ---
CELL PHONE # = [phone] HER JONAH DWIGHT
[2019-04-02 20:22] VITALS: BP 130/64
--- NOTE | 2019-04-02 20:47 | NUR ---
RECEIVED IN DAYROOM. SITTING IN A CHAIR. CALM AND COOPERATIVE WITH CARE AND ASSESSMENT. CALM AND COOPERATIVE WITH CARE AND ASSESSMENT. NO SIGNS OF AGGRESSION. REDIRECT AND REORIENT NEEDED. RESTING QUIETLY IN BED WITH EYES CLOSED AT THIS TIME. CONTINUE PLAN OF CARE
[2019-04-03 08:00] VITALS: BP 105/75
--- NOTE | 2019-04-03 09:00 | NUR ---
B) PATIENT IS AWAKE AND ALERT TO SELF AND SITUATION. CALM AND COOPERATIVE WITH CARE AND ASSESSMENT. AMBULATES WITH ASSISTANCE. I) ADMINISTER PRESCRIBED MEDICATIONS. REDIRECT AND REORIENT NEEDED. R) COMPLIANT WITH MEDICATIONS. SMILING MORE TODAY. P) CONTINUE PLAN OF CARE.
--- NOTE | 2019-04-03 10:18 | PN ---
PATIENT:LULU SLATER MEDICAL RECORD: [id number] LOCATION:[facility] Maldonado ADMISSION DATE: 03/23/19 PROGRESS NOTE DATE OF SERVICE: 03/31/2019 SUBJECTIVE: Ms. Slater is a 74-year-old female who was admitted after she had been having increased aggression, cursing, throwing things. She had not been taking her medications. We had found out that she has been living in a motel with great help from the global logistics manager as a very good Protestant for the last 3-4 years, but as she has torn up 2 hotel rooms, he states he just could not handle her anymore. The patient has been calm, pleasant and appropriate. She has, multiple times, asked for Ativan between 8 and midnight several times for anxiety. She is ready to go back to the motel. We are working with the global logistics manager to get as much help and there is possible, so the patient can remain steady on her medication. She slept 7.5 hours, eating 100% and 115%. Last bowel movement was 26th. ASSESSMENT: Unchanged. PLAN: Anticipate a discharge as soon as social secretary can arrange a stable home environment with as much help as possible, especially with any medications. Case discussed with nursing, chart reviewed, and the patient interviewed. TRANSINT:[id number] Voice Confirmation ID: [id number] DOCUMENT ID: [id number] DORETHA MOMIN MD at 1018 CC: [id number] DICTATION DATE: 04/02/19 1258 LUMBER CUTTER: 04/03/19 0025 ADM IN [place] [id number] [place] [id number]
--- NOTE | 2019-04-03 10:18 | PN ---
PATIENT:LULU SLATER MEDICAL RECORD: [id number] LOCATION:[facility] Nguyen[facility] ADMISSION DATE: 03/23/19 PROGRESS NOTE DATE OF SERVICE: 04/02/2019 SUBJECTIVE: Ms. Slater is a 74-year-old female who was admitted because she was blind, had a history of seizures. She had toured up several motel rooms and her sales promotion manager was about to kick her out. On admission, she was hyperverbal, somewhat grandiose. Since administration of medicines, she is calmer, appropriate, alert and oriented times 3-4. I have talked to counter stacker, sales promotion manager has agreed to have her back, but would like help, especially in administering her medicines. I have discussed this with the patient. She is willing to have people come in to help. She slept 8.25 hours, eating 100%, 100%, and 60%. Last bowel movement on the . ASSESSMENT: Unchanged. PLAN: Anticipate discharge back as soon as much structure is possible, could be brought to the patient's home, especially in regards to her medications. Case discussed with nursing, chart reviewed, and the patient interviewed. TRANSINT:[id number] Voice Confirmation ID: [id number] DOCUMENT ID: [id number] DORETHA MOMIN MD at 1018 CC: [id number] DICTATION DATE: 04/02/19 1202 BOLT MACHINE OPERATOR: 04/02/19 1357 [place] [address]
--- NOTE | 2019-04-03 13:37 | NUR ---
[facility] CALLED TO JESSICA GONZALEZ, FOR DR. PRATER. NEW ORDER RECEIVED AND NOTED.
--- NOTE | 2019-04-03 20:01 | NUR ---
RECEIVED IN BEDROOM. ASSIST TO GET READY FOR BED. CALM AND COOPERATIVE WITH CARE AND ASSESSMENT. NO SIGNS OF AGGRESSION. REDIRECT AND REORIENT NEEDED. RESTING IN BED WITH EYES CLOSED AT THIS TIME. CONTINUE PLAN OF CARE
[2019-04-04 04:19] VITALS: BP 100/56
[2019-04-04 08:25] VITALS: BP 128/79
[2019-04-04 20:19] VITALS: BP 131/76
--- NOTE | 2019-04-04 22:24 | NUR ---
B.) PT IS ALERT AND ORIENTED TO SELF AND SITUATION ONLY. SHE IS PLEASANT WITH STAFF AND PEERS. SHE IS RECIEVED ON THE COUCH IN THE DAYROOM SOCIALIZING. SHE IS ABLE TO MAKE HER NEEDS KNOWN. I.) PROVIDED PM MEDICATIONS. R.) COMPLIANT WITH ALL MEDICATIONS. P.) CONTINUE PLAN OF CARE
[2019-04-05 08:49] VITALS: BP 125/73
--- NOTE | 2019-04-05 09:00 | NUR ---
PATIENT EATING BREAKFAST AND SOCIALIZING WITH OTHER PATIENTS. PT GIGGLES TO SELF AT TIMES. PT IS BLIND. ORIENTED TO SELF AND TIME. POOR INSIGHT TO SITUTION. PT IS COMPLIANT WITH MEDS, ASSESSMENTS AND VITALS. PT AMBULATES WITH ASSISTANCE AND SET UP ASSISTANCE. PT IS ABLE TO MAKE NEEDS KNOWN. PT AT TIMES YELLS OUT BUT APOLOGIZES AFTER REDIRECTION. WILL CONT PLAN OF CARE.
--- NOTE | 2019-04-05 13:27 | NUR ---
Team Treatment Review: Diet: Regular Diet PO intake: 91% avg x 9 meals Wt: (+ 2 lbs) 03/25/2019: 128.8 lbs 04/01/2019: 130.8 lbs BM: x 1 on 04/04 Meds: Vit B 12, Vit D Labs: No new labs since 03/23 PO intake good. Continue current diet as tolerated. Clinical Dietitian Following
--- NOTE | 2019-04-05 14:53 | PN ---
PATIENT:LULU SLATER MEDICAL RECORD: [id number] LOCATION:[facility] ADMISSION DATE: 03/23/19 PROGRESS NOTE DATE OF SERVICE: 04/04/2019 SUBJECTIVE: The patient's case was discussed with staff. She has no new complaint. OBJECTIVE: The patient is in good behavioral control with limited insight about her condition. She has not been aggressive. ASSESSMENT: No change in diagnoses. PLAN: Current medicines and therapies have been reviewed and will be maintained. Long-term prognosis is guarded. TRANSINT:[id number] Voice Confirmation ID: [id number] DOCUMENT ID: [id number] ANA BARBA MD at 1453 CC: [id number] DICTATION DATE: 04/04/19 1630 HOUSEHOLD PERSONAL ASSISTANT: 04/05/19 0026 ADM IN [facility] [address] [place] [address]
[2019-04-05 20:53] VITALS: BP 129/65
--- NOTE | 2019-04-06 03:59 | NUR ---
B) Patient is alert and oriented to person and place, calm and cooperative, happy and laughing at times, I) Administered scheduled medications as ordered, asisted with needs, R) Medication compliant, P) Continue plan of care.
--- NOTE | 2019-04-06 11:20 | NUR ---
PATEINT SITTING AND SOCIALIZING WITH PEERS AT THIS TIME. PT IS FRIENDLY WITH STAFF AND PEERS. PT IS BLIND AND REQUIRES ASSISTANCE WITH AMBULATION. PT IS COMPLIANT WITH ASSESSMENTS, VITALS AND MEDS. WILL CONT PLAN OF CARE.
--- NOTE | 2019-04-06 14:28 | PN ---
PATIENT:LULU SLATER MEDICAL RECORD: [id number] LOCATION:[facility] Patrick113 ADMISSION DATE: 03/23/19 PROGRESS NOTE DATE OF SERVICE: 04/05/2019 SUBJECTIVE: The patient's case was discussed with staff. She has no new complaint. OBJECTIVE: The patient is in good behavioral control. She denies that she would seek to harm herself or others. ASSESSMENT: No change in diagnoses. PLAN: The patient will be maintained on current medications. I am going to check a Depakote level. Her long-term prognosis is guarded. TRANSINT:[id number] Voice Confirmation ID: [id number] DOCUMENT ID: [id number] ANA BARBA MD at 1428 CC: [id number] DICTATION DATE: 04/05/19 1505 OUTPATIENT CLERK: 04/06/19 0019 ADM IN [facility] [address] [place] [address]
[2019-04-06 14:55] VITALS: BP 128/65
[2019-04-06 20:05] VITALS: BP 118/63
--- NOTE | 2019-04-07 01:49 | NUR ---
REC'D SITTING IN THE DAYROOM HOLDING A PEERS HAND. EXPLAINED TO BOTH PATIENTS THAT PHYSICAL CONTACT IS NOT ALLOWED. ORIENTED X3. BELIEVES IS HOSPITALIZED DUE TO HAVING SEIZURES. PATIENT IS BLIND HOWEVER WAS LIVING INDEPENDENTLY. RELATES HAS HAD DIARRHEA. SPOKE ABOUT HAVING [facility] AND IT MAKES HE FEEL LIKE SHE IS SPINNING LIKE IN A HURRICANE. ADMINISTER MEDS AND MONITOR COMPLIANCE. OBSERVE FOR ANGER OUTBURST AND REDIRECT NEEDED. MED COMPLIANT. CALM AND COOPERATIVE AT PRESENT. CONTINUE POC AND PROVIDE SAFE ENVIRONMENT.
[2019-04-07 08:56] VITALS: BP 107/91
[2019-04-07 11:23] VITALS: BP 107/91
--- NOTE | 2019-04-07 12:17 | PN ---
PATIENT:LULU SLATER MEDICAL RECORD: [id number] LOCATION:[facility] Nguyen113 ADMISSION DATE: 03/23/19 PROGRESS NOTE DATE OF SERVICE: 04/06/2019 SUBJECTIVE: The patient's case was discussed with staff. She has no new complaint. OBJECTIVE: The patient is in good behavioral control with limited insight about her condition. She is unsure about what she wants as far as discharge goes. Right now, she is pretty focused on the fact that she does not have her social security check and I do not know who has it and our social insurance administrator has already left for the day. I am afraid that she is not very well comforted by the fact that I am telling her that I feel comfortable it is okay and has gone to whatever location it normally goes to. She says it goes to the extrusion press adjuster of the motel she is staying in, but that does not sound appropriate or correct to me. At any rate, if it has been misappropriated, there may be some inconvenience, but I am sure it can be corrected, it is just simply a matter of me not being able to give her information that would comfort her and she is highly distressed about this check. TRANSINT:[id number] Voice Confirmation ID: [id number] DOCUMENT ID: [id number] ANA BARBA MD at 1217 CC: [id number] DICTATION DATE: 04/06/19 1453 CENTRAL SERVICE TECH: 04/06/19 1607 ADM IN [facility] [address] [place] [address]
--- NOTE | 2019-04-07 14:51 | NUR ---
PT IS AWAKE AND ALERT TO PERSON ONLY. CALM AND COOPERATIVE WITH ASSESSMENT. MED COMPLAINT. NO BEHAVIORS NOTED. REDIRECT AND REORIENT NEEDED. FALL PRECAUTIOSN IN PLACE. WILL CPOC.
[2019-04-07 20:59] VITALS: BP 97/56
--- NOTE | 2019-04-07 22:44 | NUR ---
THIS PATIENT IS PLEASANT MOST OF THE TIME, HOWEVER SHE IS IMPULSIVE AND WILL QUICKLY BECOME ARGUMENTATIVE. SHE IS ABLE TO ASK FOR HER NEEDS AND CAN VOICE CONCERNS. COMPLIANT WITH MEDS. WILL FOLLOW POC
[2019-04-08 08:41] VITALS: BP 140/72
--- NOTE | 2019-04-08 10:51 | PN ---
PATIENT:LULU SLATER MEDICAL RECORD: [id number] LOCATION:[facility] Nguyen113 ADMISSION DATE: 03/23/19 PROGRESS NOTE DATE OF SERVICE: 04/07/2019 SUBJECTIVE: The patient's case was discussed with staff. She has no new complaint. OBJECTIVE: The patient is in good behavioral control with no thoughts of harming herself or others. Her mood is euthymic. ASSESSMENT: No change in diagnoses. PLAN: The patient will be maintained on current medicines. I anticipate she can be discharged soon, but the problem at this point is discharge planning. I think it is inappropriate for her to live in a motel in a very dangerous part of town. TRANSINT:[id number] Voice Confirmation ID: [id number] DOCUMENT ID: [id number] ANA BARBA MD at 1051 CC: [id number] DICTATION DATE: 04/07/19 1228 FIELD CARE MANAGER: 04/07/19 1300 ADM IN [place] [id number] [place] [address]
--- NOTE | 2019-04-08 11:44 | NUR ---
PT SITTING AND SOCIALZING WITH STAFF. PT IS BLIND AND REQUIRES ASSISTANCE WITH AMBULATION. CAN MAKE NEEDS KNOWN. COMPLIANT WITH MEDS, VITALS AND ASSESSMENTS. PT IS VERY FRIENDLY WITH STAFF AND PEERS. PT IS CONFUSED AT TIMES. ORIENTED TO PERSON, PLACE AND TIME. DISORIENTED TO SITUTION. NO BEHAVIORS NOTED THIS SHIFT OR PREVIOUS SHIFT. WILL CONT PLAN OF CARE.
--- NOTE | 2019-04-08 17:40 | NUR ---
DAUGHTER NEW # MARYJO [phone].
--- NOTE | 2019-04-08 20:14 | NUR ---
RECEIVED IN DAYROOM. SITTING IN A CHAIR SOCIALIZING WITH PEERS. CALM AND COOPERATIVE WITH ARE AND ASSESSMENT. NO SIGNS OF AGGRESSION. REDIRECT AND REORIENT NEEDED. RESTING IN BED WITH EYES CLOSED AT THIS TIME. CONTINUE PLAN OF CARE
[2019-04-08 21:33] VITALS: BP 136/90
[2019-04-09 08:00] VITALS: BP 136/64
--- NOTE | 2019-04-09 11:32 | NUR ---
MIGUELITO ATTEMPTED TO CALL DTR[facility], BUT NO RING AND SOUNDS LIKE FAX MACHINE NUMBER. SW ALERTED STAFF PT IS READY FOR DISCHARGE BUT WE DO NEED AN ACCURATE NUMBER AND ADDRESS TO WHERE PT WILL BE DISCHARGED TO.
--- NOTE | 2019-04-09 15:02 | PN ---
PATIENT:LULU SLATER MEDICAL RECORD: [id number] LOCATION:LAT[facility]HA N[facility]yn[address] ADMISSION DATE: 03/23/19 PROGRESS NOTE DATE OF SERVICE: 04/08/2019 SUBJECTIVE: The patient's case was discussed with staff. She has no new complaint. OBJECTIVE: The patient is in good behavioral control and she has no thoughts of harming herself or others. She has had no agitated behavior. ASSESSMENT: Schizoaffective disorder. PLAN: Current medicines have been reviewed and will be maintained. Long-term prognosis is guarded. TRANSINT:[id number] Voice Confirmation ID: [id number] DOCUMENT ID: [id number] ANA BARBA MD at 1502 CC: [id number] DICTATION DATE: 04/08/19 1148 UNIVERSITY LIBRARIAN: 04/08/19 1551 ADM IN [facility] [address] [place] [address]
[2019-04-09] MEDS ORDERED: DEPAKOTE ER500 MG PO (16:18)
[2019-04-09] MEDS ORDERED: VITAMIN B-121000 MCG PO (16:18)
[2019-04-09] MEDS ORDERED: VITAMIN D5000 UNIT PO (16:18)
[2019-04-09] MEDS ORDERED: LIDODERM 5 %1 PATCH TRANSDERM (16:18)
[2019-04-09] MEDS ORDERED: Lamisil Cream TOPICAL (16:18)
[2019-04-09] MEDS ORDERED: SEROquel PO (16:18)
--- NOTE | 2019-04-09 16:38 | NUR ---
PT IS AWAKE AND ALERT TO PERSON. CALM AND COOPERATIVE WITH ASSESSMENT. MED COMPLIANT. REDIRECT AND REORIENT NEEDED. NO BEHAVIORS NOTED AT THIS TIME. PT IS VERY PLEASANT WITH STAFF AND PEERS. FALL PRECAUTIONS IN PLACE. WILL CPOC.
[2019-04-09 20:14] VITALS: BP 135/95
--- NOTE | 2019-04-09 22:34 | NUR ---
RECEIVED IN DAYROOM. SOCIALIZING WITH PEERS. CALM AND COOPEATIVE WITH CARE AND ASSESSMENT. NO AGGRESSIVE BEHAVIORS. REDIRECT AND REORIENT NEEDED. RESTING IN BED WITH EYES CLOSED AT THIS TIME. CONTINUE PLAN OF CARE.
[2019-04-10 07:00] VITALS: BP 138/72
--- NOTE | 2019-04-10 10:59 | NUR ---
REC'D PT IN HALLWAY WITH PEERS. AWAKE AND ALERT TO PERSON ONLY. CALM AND COOPERATIVE WITH ASSESSMENT. REDIRECT AND REORIENT NEEDED. MED COMPLIANT. FALL PRECAUTIONS IN PLACE. WILL CPOC.
--- NOTE | 2019-04-10 14:36 | NUR ---
Nutrition Follow-up: Chart reviewed Diet: Regular PO intake: 75-100% all meals Labs noted: ammonia 41H. Meds noted: lactulose. Skin assessment reviewed. Last BM 04/09/19. Wt: 137# (04/08/19); admit wt: 126# (03/23/19) = +11#. Continue current nutrition regimen. RD Following
--- NOTE | 2019-04-10 14:49 | PN ---
PATIENT:LULU SLATER MEDICAL RECORD: [id number] LOCATION:LATAS[facility] Nguyen113 ADMISSION DATE: 03/23/19 PROGRESS NOTE DATE OF SERVICE: 04/09/2019 SUBJECTIVE: The patient's case was discussed with staff. She has no new complaint. OBJECTIVE: The patient is in good behavioral control with limited insight about her condition. She tolerates her medicines well. She has no thoughts of harming herself or others and no psychotic symptoms. ASSESSMENT: Schizoaffective disorder. PLAN: The patient will be transitioned out of the hospital as soon as her daughter can pick her up. I anticipate that will be tomorrow, but it may be this evening. Adult protective services has approved her to be released to the care of the daughter. TRANSINT:[id number] Voice Confirmation ID: [id number] DOCUMENT ID: [id number] ANA BARBA MD at 1449 CC: [id number] DICTATION DATE: 04/09/19 1614 GREASE WORKER: 04/10/19 0109 ADM IN [id number] [place] [address]
--- NOTE | 2019-04-10 16:29 | NUR ---
PT HAD VISIT FROM DTR, MAGALYS, SHE ATTEMPTED TO MEET WITH PT ABOUT MOVING IN WITH HER FOR A WEEK. PT STATED SHE WAS NOT GOING TO STAY WITH HER AND IT WOULD NOT WORK OUT. PT DID NOT WANT TO PAY THE AMOUNT TO STAY AT THE APARTMENT NEXT DOOR. SHE STATED IT WAS TOO MUCH. PT STATED CALL THE STATE AND PUT ME IN THEIR CUSTODY, THIS IS NOT GOING TO WORK OUT. PT'S DTR ASKED TO LEAVE UNIT AND WAS IN TEARS BY PT'S REACTION. SW COMFORTED DTR AND PUT IN A CALL TO APS.
--- NOTE | 2019-04-10 18:39 | NUR ---
PATIENT HAD OUTBURST OF CURSING DIRECTED AT ANOTHER PATIENT. PATIENTS .
--- NOTE | 2019-04-10 20:49 | NUR ---
RECEIVED IN DAYROOM. SITTING IN A CHAIR WITH PEERS AT HER SIDE. SOCIALIZING AT TIMES. CALM AND COOPERATIVE WITH CARE AND ASSESSMENT. NO SIGNS OF AGGRESSION. RESTING IN BED WITH EYES CLOSED AT THIS TIME. CONTINUE PLAN OF CARE
[2019-04-10 20:59] VITALS: BP 139/84
[2019-04-11 08:00] VITALS: BP 125/59
--- NOTE | 2019-04-11 12:07 | PN ---
PATIENT:LULU SLATER MEDICAL RECORD: [id number] LOCATION:LATASHA Nguyen113 ADMISSION DATE: 03/23/19 PROGRESS NOTE DATE OF SERVICE: 04/10/2019 SUBJECTIVE: The patient's case was discussed with staff. She has no new complaint. OBJECTIVE: The patient is in good behavioral control with limited insight about her condition. She tolerates her medicines well. ASSESSMENT: No change in diagnoses. PLAN: Brief supportive and educational interventions were made. Long-term prognosis is guarded. TRANSINT:[id number] Voice Confirmation ID: [id number] DOCUMENT ID: [id number] ANA BARBA MD at 1207 CC: [id number] DICTATION DATE: 04/10/19 1513 LIBRARY MEDIA ASSISTANT: 04/11/19 0100 ADM IN [place] [address] [place] [address]
--- NOTE | 2019-04-11 18:33 | NUR ---
PATIENT MOSTLY COOPERATIVE THIS SHIFT WITH ONLY ONE OUTBURST NOTED. CONT CONFUSED, MISINTERPRETS AT TIMES. COMPLIANT WITH MEDS. COMPLIANT WITH PLAN OF CARE. CONT POC DIRECTED.
--- NOTE | 2019-04-11 22:40 | NUR ---
RECEIVED IN PATIENT ROOM. RESTING IN BED WITH EYES OPEN. CALM AND COOPERATIVE WITH CARE AND ASSESSMENT. NO AGGRESSIVE BEHAVIORS. REDIRECT AND REORIENT NEEDED. RESTING IN BED WITH EYES CLOSED AT THIS TIME. CONTINUE PLAN OF CARE.
[2019-04-11 22:48] VITALS: BP 120/54
[2019-04-12 08:05] VITALS: BP 154/78
--- NOTE | 2019-04-12 10:50 | NUR ---
PATIENT HAD A SHOWER THIS SHIFT.
--- NOTE | 2019-04-12 12:21 | NUR ---
NUTRITION F/U 75 TO 100% INTAKE RECENT MEALS, REG DIET. INCREASE WT SINCE ADMIT NOTED. BM 04/11/19 WILL CONTINUE TO PROVIDE DIET, MONITOR PO INTAKE AND WT. RD FOLLOWING
--- NOTE | 2019-04-12 12:49 | NUR ---
B) The patient is awake and alert. She is pleasant, she is socializing and talking. She is legally blind but sees shadows. She needs assist with ambulating. I) Provide prescribed meds. R) The patient is compliant with meds and unit milieu. P) Continue POC.
--- NOTE | 2019-04-12 14:38 | PN ---
PATIENT:LULU SLATER MEDICAL RECORD: [id number] LOCATION:LATASHA Nguyen113 ADMISSION DATE: 03/23/19 PROGRESS NOTE DATE OF SERVICE: 04/11/2019 SUBJECTIVE: The patient's case was discussed with staff. She has no new complaint. OBJECTIVE: The patient is in good behavioral control and ready for discharge. Her daughter has not been able to come and get her. The patient is anxious to leave. ASSESSMENT: Schizoaffective disorder. PLAN: The patient will be transitioned out of the hospital as soon as her daughter gets here, she continues to tolerate her medicines well, and certainly has no evidence of acute or direct dangerousness. TRANSINT:[id number] Voice Confirmation ID: [id number] DOCUMENT ID: [id number] ANA BARBA MD at 1438 CC: [id number] DICTATION DATE: 04/11/19 1258 E MARKETING SPECIALIST: 04/11/19 1322 ADM IN [place] [address] [place] [address]
--- NOTE | 2019-04-12 17:46 | NUR ---
DAUGHTER GAVE NURSE INFORMATION OF HER ADDRESS, PHARMACY, PRIMARY DOCTOR, AND PHONE NUMBER: [phone], [facility] [address], PHONE NUMBER: [phone], PRIMARY DOCTOR: TREASURE FUENTES MD AND ERIKA COREY NP, PHONE [phone], [phone], PHARMACY- [facility] AND [facility].
--- NOTE | 2019-04-13 00:11 | NUR ---
B) Patient is alert and oriented to person and place, blind, social with peers and staff, I) Administered scheduled medications as ordered, onitored for needs R) Mediation compliant, pleasant and friendly, P) Continue plan of care.
[2019-04-13 00:43] VITALS: BP 134/64
[2019-04-13 08:44] VITALS: BP 108/62
--- NOTE | 2019-04-13 10:25 | NUR ---
B) The patient is awake and alert, she is in an irritable mood this am, she has stated that she is perturbed. She is being discharged today. She wonders when and at what time. Will fax all paperwork to her PCP. I) Provide prescribed meds. R) The patient is compliant with meds. P) Continue POC.
--- NOTE | 2019-04-13 10:37 | NUR ---
SPOKE WITH PT DAUGHTER ABOUT DISCHARGE THIS SHIFT. NURSE FORWARED HER TO GAS DISTRIBUTION AND EMERGENCY CLERK IN REGARDS TO DISCHARGE PLANNING.
--- NOTE | 2019-04-13 11:56 | NUR ---
Attempted to call the patient's dtr. Edith, left a message to let her know her Mom is d/cing today and we will send her home via a [employer] cab.
--- NOTE | 2019-04-13 12:54 | NUR ---
PT LEFT WITH [facility] AND SERVICE. NURSE EXPLAINED THAT SHE WOULD HAVE TO BE WALKED TO HER DOOR CAUSE SHE IS BLIND. LIST OF MEDICATIONS AND BELONGINGS WAS GIVEN TO DINKEY OPERATOR SLAG. PT WAS STABLE AND VERY EXCITED TO LEAVE. PT IS GOING TO HER DAUGHTERS APARTMENT [facility]. DAUGHTER CALLED AND STAFF NOTIFIED HER OF LEAVING AT THIS TIME.
--- NOTE | 2019-04-13 15:03 | PN ---
PATIENT:LULU SLATER MEDICAL RECORD: [id number] LOCATION:[facility] ADMISSION DATE: 03/23/19 PROGRESS NOTE DATE OF SERVICE: 04/12/2019 SUBJECTIVE: The patient's case was discussed with staff. She has no new complaint. OBJECTIVE: The patient is very angry. I met with the social media editor today. She informed me that adult protective services has decided to take custody of her after she and her daughter had an argument here on the unit. It is clear that they cannot get along and the patient is unable to care for herself. In addition to this, the patient's daughter lives in subsidized housing and cannot have someone else living there, permanently. Based on these facts, the patient is going to be placed in a long-term by adult protective services. TRANSINT:[id number] Voice Confirmation ID: [id number] DOCUMENT ID: [id number] ANA BARBA MD at 1503 CC: [id number] DICTATION DATE: 04/12/19 1451 GEOTHERMAL INSTALLER: 04/12/19 2309 DIS IN 04/13/[address] [facility] [address] [place] [address]
--- NOTE | 2019-04-14 12:31 | PN ---
PATIENT:LULU SLATER MEDICAL RECORD: [id number] LOCATION:[facility] ADMISSION DATE: 03/23/19 PROGRESS NOTE DATE OF SERVICE: 04/13/2019 SUBJECTIVE: The patient's case was discussed with staff. She has no new complaint. OBJECTIVE: The patient is in good behavioral control and has no thoughts of harming herself or others. ASSESSMENT: Schizoaffective disorder. PLAN: The patient interestingly has calmed down significantly. The office of long-term care yesterday denied her retirement placement. When Adult Protective Services was informed of this, they change their mind about retirement placement and are allowing her to go home with her daughter. Her daughter was here yesterday, visited with her and at this time, there was not any kind of a confrontation or flight. Subsequently, at discharge, the patient to home with her daughter today. TRANSINT:[id number] Voice Confirmation ID: [id number] DOCUMENT ID: [id number] ANA BARBA MD at 1231 CC: [id number] DICTATION DATE: 04/13/19 1549 AUTO SERVICE ADVISOR: 04/13/19 2344 DIS IN 04/13/19 [facility] [address] [place] [address]
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
--- NOTE | 2019-05-23 12:26 | PN ---
PATIENT:LULU SLATER MEDICAL RECORD: [id number] LOCATION:[facility] ADMISSION DATE: 03/23/19 PROGRESS NOTE DATE OF SERVICE: 04/03/2019 SUBJECTIVE: Ms. Slater is a 74-year-old female, who was admitted secondary to aggression, cursing, throwing things. The patient has had days of pleasant and cooperative behavior, although nursing reports yesterday when staff was trying to intervene with another patient, the patient suddenly started yelling "they are lying to you, they are lying to you." When asked about today, the patient did not remember it and became rather labile about it saying somewhat dramatically that she apologized and then talking about how no one really supports her, more lability than I have seen, although there is a lot of noise and confusion in the day room now, which might be complicating her mood. She has slept 9.75 hours, eating 100%, 100%, and 90%. Last bowel movement on the . OBJECTIVE: LATEST VITAL SIGNS: 98.2, 57, 17, 105/75, and 97%. ASSESSMENT: Unchanged. PLAN: We will get ammonia level as we have increased her Depakote precipitously, although Depakote level is certainly within normal limits. We are still working on placement. Right now, the plan is to get her back to her motel room with as many services as possible, especially to help with medication management. Case discussed with nursing, chart reviewed and patient interviewed. TRANSINT:[id number] Voice Confirmation ID: [id number] DOCUMENT ID: [id number] DORETHA MOMIN MD at 1226 CC: [id number] DICTATION DATE: 04/03/19 1018 GREETING CARD WRITER: 04/03/19 1235 DIS IN 04/13/19 [place] [id number] [place] [address]
== END 2019-04-13 12:59 | disposition home or self-care (01) | DRG 885 ==
LOC: D.ER 11:07 → D.PSYCH 15:33
PROVIDERS: Family Medicine; ADMIT Psychiatry & Neurology Psychiatry; ATTEND Psychiatry & Neurology Psychiatry
DX: F25.0 Schizoaffective disorder, bipolar type (principal); N39.0 Urinary tract infection, site not specified; F03.91 Unspecified dementia, unspecified severity, with behavioral disturbance; B96.20 Unspecified Escherichia coli [E. coli] as the cause of diseases classified elsewhere; I25.10 Atherosclerotic heart disease of native coronary artery without angina pectoris; H54.7 Unspecified visual loss; B35.4 Tinea corporis; I10 Essential (primary) hypertension; E53.8 Deficiency of other specified B group vitamins; E55.9 Vitamin D deficiency, unspecified; G40.909 Epilepsy, unspecified, not intractable, without status epilepticus; M19.011 Primary osteoarthritis, right shoulder; M16.12 Unilateral primary osteoarthritis, left hip; G89.29 Other chronic pain; M54.5 Low back pain

== ENCOUNTER 2019-04-30 08:19 | Inpatient (IN) | payer MEDICARE ==
[~2019-04-30] VITALS: Ht 162.6 cm; Wt 61.0 kg
[2019-04-30] VITALS (26 sets, daily range): BP systolic 118–222; BP diastolic 45–82; BMI 21.3
[~2019-04-30 08:19] MED LIST changes: +DEPAKOTE ER500 MG PO; +DILANTIN100 MG PO; +LIDODERM 5 %1 PATCH TRANSDERM; +LIPITOR20 MG PO; +Lamisil Cream TOPICAL; +SEROquel PO; +TRAZODONE HCL150 MG PO; +VITAMIN B-121000 MCG PO; +VITAMIN D5000 UNIT PO
[2019-04-30] MEDS ORDERED: TRAZODONE HCL150 MG PO (08:26)
[2019-04-30 09:27] LABS: BASOPHILS 0.2 % (0-2); EOSINOPHILS 1.9 % (0-7); HEMATOCRIT 44.6 % (36.0-48.0); HEMOGLOBIN 14.3 g/dL (12-16); IMMATURE GRANULOCYTES 0.2 % (0-5); LYMPHOCYTES 19.1 % (15-50); MCH 29.8 pg (26.0-34.0); MCHC 32.1 g/dL (31.0-37.0); MCV 92.9 fL (80.0-100.0); MEAN PLATELET VOLUME 11.1 fL (7.4-10.4); MONOCYTES 13.1 % (2-11); NEUTROPHILS 65.5 % (40-80); PLATELET COUNT 138 10x3/uL (130-400); RDW 13.4 % (11.5-14.5); WBC 8.5 10x3/uL (4.8-10.8)
--- NOTE | 2019-04-30 09:29 | NUR ---
PT LEAVING ED VIA STRETCHER FOR ORDERED CT SCANS, IV INFUSION CONTINUES DURING TRANSPORT.
[2019-04-30 09:37] LABS: CALC OSMOLALITY 288 mosm/kg (275-300); CALCIUM 8.8 mg/dL (8.5-10.1); CARBON DIOXIDE 31.2 mmol/L (21.0-32.0); CHLORIDE - SERUM 106 mmol/L (98-107); CREATININE - SERUM 0.6 mg/dL (0.6-1.3); GLUCOSE 92 mg/dL (74-106); POTASSIUM - SERUM 3.3 mmol/L (3.5-5.1); SODIUM 145 mmol/L (136-145); UREA NITROGEN 12 mg/dL (7-18); eGFR NON AFRICAN AMERICAN > 90 mL/min (90-120)
--- NOTE | 2019-04-30 09:45 | NUR ---
PT BACK TO ED AT THIS TIME
[2019-04-30 09:52] LABS: ALBUMIN 3.6 g/dL (3.4-5.0); ALKALINE PHOSPHATASE 82 U/L (46-116); ALT (SGPT) 16 U/L (10-68); BILIRUBIN - TOTAL 0.43 mg/dL (0.2-1.3); CKMB 0.7 U/L (0.0-3.6); CREATINE KINASE 70 UL (21-215); MAGNESIUM - SERUM 1.7 mg/dL (1.8-2.4); PROTEIN - SERUM 7.3 g/dL (6.4-8.2); TROPONIN-I < 0.017 ng/mL (0.000-0.060)
[2019-04-30 10:15] LABS: INR 1.03 (0.85-1.17)
[2019-04-30 10:16] LABS: APTT 26.4 SECONDS (22.8-39.4)
--- NOTE | 2019-04-30 10:37 | NUR ---
PT ASSISTED WITH UNDRESSING. SOLIED BRIEF CHANGED. ALL OF PT'S CLOTHING PLACED IN PT BELONGING BAG. SOLIED LINENS CHANGED.
--- NOTE | 2019-04-30 10:38 | NUR ---
EDP NOTIFIED OF CURRENT BP OF 179/49. NO FURTHER ORDERS RECEIVED
--- NOTE | 2019-04-30 11:50 | NUR ---
SLING APPLIED TO THE LUE DIRECTED PER EDP.
--- NOTE | 2019-04-30 12:55 | NUR ---
PT BACK TO ED AT THIS TIME FROM MEDICAL IMAGING DEPT.
--- NOTE | 2019-04-30 14:23 | NUR ---
PT ARRIVED TO ICU FROM ER. BP 122/57. CARDENE GTT TITRATED DOWN FROM 7.5MG/HR TO 5MG/HR. PT ALERT AND ANSWERS ALL QUESTIONS. DENIES ANY NEEDS AT THIS TIME, WILL CONT TO FOLLOW POC
--- NOTE | 2019-04-30 15:02 | NUR ---
PT BP 125/50. CARDENE TITRATED DOWN FROM 5MG/HR TO 2.5MG/HR.
--- NOTE | 2019-04-30 15:46 | NUR ---
PT BP IS 118/45. CARDENE GTT STOPPED AT THIS TIME.
--- NOTE | 2019-04-30 16:34 | NUR ---
PT RESTING IN BED. VSS AND WNL, BP 138/53 AT THIS TIME. DAUGHTER AT BEDSIDE. WILL CONT TO FOLLOW POC
--- NOTE | 2019-04-30 17:35 | NUR ---
PT RESTING IN BED EATING SUPPER. DENIES ANY NEEDS AT THIS TIME. WILL CONT TO FOLLOW POC
--- NOTE | 2019-04-30 17:39 | NUR ---
NOTIFIED PHARMACY THAT PT NORVASC IS NOT AVAILABLE
--- NOTE | 2019-04-30 19:00 | NUR ---
PT RESTING IN BED. REPORT RECEIVED FROM DAY SHIFT NURSE. SHIFT ASSESSMENT COMPLETED. VSS. WILL CONTINUE TO MONITOR
--- NOTE | 2019-04-30 20:00 | NUR ---
PT HAD EPISODE OF INCONTINENCE. PT CLEANED AND GIVEN CHG BATH. LINENS CHANGED. PT TOLERATED WELL
--- NOTE | 2019-04-30 21:00 | NUR ---
PT RESTING IN BED NOW. AWAKENS EASILY. NO COMPLAINTS NOTED AT THIS TIME. WILL CONTINUE TO MONITOR
--- NOTE | 2019-04-30 23:00 | NUR ---
PT RESTING IN BED. REASSESSMENT COMPLETED. NO SIGNS OF DISTRESS NOTED. VSS. ASKED FOR A SNACK SO PT GIVEN PRAVIN CRACKERS AND SOME MILK. WILL CONTINUE TO MONITOR
[2019-05-01] VITALS (19 sets, daily range): BP systolic 105–169; BP diastolic 46–66; Ht 162.6 cm; Wt 61.0 kg
--- NOTE | 2019-05-01 01:00 | NUR ---
PT RESTING IN BED. AROUSES EASILY. NO COMPLAINTS NOTED AT THIS TIME. VSS. WILL CONTINUE TO MONITOR
--- NOTE | 2019-05-01 03:00 | NUR ---
PT RESTING IN BED. LINEN CHANGE DUE TO INCONTINENCE. NO COMPLAINTS AT THIS TIME. REASSESSMENT COMPLETED. VSS
[2019-05-01 04:45] LABS: BASOPHILS 0.3 % (0-2); EOSINOPHILS 5.1 % (0-7); HEMATOCRIT 41.9 % (36.0-48.0); HEMOGLOBIN 13.3 g/dL (12-16); LYMPHOCYTES 31.9 % (15-50); MCH 29.6 pg (26.0-34.0); MCHC 31.7 g/dL (31.0-37.0); MCV 93.1 fL (80.0-100.0); MEAN PLATELET VOLUME 11.3 fL (7.4-10.4); MONOCYTES 13.9 % (2-11); NEUTROPHILS 48.8 % (40-80); PLATELET COUNT 134 10x3/uL (130-400); RDW 13.6 % (11.5-14.5)
[2019-05-01 04:59] LABS: WBC 6.1 10x3/uL (4.8-10.8)
--- NOTE | 2019-05-01 05:00 | NUR ---
PT RESTING IN BED. NO COMPLAINTS NOTED AT THIS TIME. VSS. WILL CONTINUE TO MONITOR
[2019-05-01 05:06] LABS: ALBUMIN 3.1 g/dL (3.4-5.0); ANION GAP 8.9 mmol/L (8-16); BILIRUBIN - TOTAL 0.43 mg/dL (0.2-1.3); CALCIUM 8.1 mg/dL (8.5-10.1); CARBON DIOXIDE 32.6 mmol/L (21.0-32.0); POTASSIUM - SERUM 3.5 mmol/L (3.5-5.1); PROTEIN - SERUM 6.2 g/dL (6.4-8.2)
[2019-05-01 05:10] LABS: CREATININE - SERUM 0.8 mg/dL (0.6-1.3)
--- NOTE | 2019-05-01 07:00 | NUR ---
RECEIVED BEDSIDE REPORT ON PATIENT AND ASSUMED CARE. PATIENT SITTING UP IN BED, ALERT AND ORIENTED X 4, C/O HEADACHE AND MILD NECK PAIN RATES 3/10, RATES L ELBOW PAIN 0/10. IV BILATERAL FAS 22 GA R INFUSING NS AT 25 CC/HR AND L NSL. BBS - CLEAR AND EQUAL, SPO2 - 96% ON RA. CM - SB RATE OF 55. LEFT ARM IN SLING, READJUSTED FOR COMFORT. HEAD TO TOE ASSESSMENT COMPLETE.
--- NOTE | 2019-05-01 09:18 | NUR ---
PATIENT RESTING QUITELY, VSS. NO NEEDS AT THIS TIME. MORNING MEDS GIVEN PER MAR.
--- NOTE | 2019-05-01 09:52 | NUR ---
DR. CABA AT ROOM UPDATED AND EXAMINES PATIENT. OK TO TRANSFER TO FLOOR. REQUESTS COCKUP SPLINT TO LEFT WRIST AND IV D/C TO LEFT FA. IV DISCONINUED AND SPLINT APPLIED. ARM IN SLING. NS GTT ALSO D/C'D PER DR. CABA. VSS. OK TO MOVE PATIENT TO FLOOR.
--- NOTE | 2019-05-01 11:00 | NUR ---
REASSESMENT COMPLETE, PATIENT RESTING QUIETLY, VSS. STATES NO PAIN AT THIS TIME.
--- NOTE | 2019-05-01 12:38 | NUR ---
PATIENT C/O OF NAUSEA PRN ZOFRAN GIVEN IVP WITH NS FLUSH. PATIENT ATE 90% OF LUNCH. VSS.
--- NOTE | 2019-05-01 13:25 | NUR ---
PT AT ROOM PER CONSULT.
--- NOTE | 2019-05-01 13:51 | NUR ---
PATIENT INCONTINENT OF URINE, LARGE AMOUNT, YELLOW IN COLOR, CLEANED, LINENS AND GOWN CHANGED. PATIENT ASSISTED UP TO BEDSIDE CHAIR. VSS.
--- NOTE | 2019-05-01 14:40 | NUR ---
PATIENT C/O PAIN LEFT ELBOW PAIN AND RIGHT ARM PAIN RATES 8/10, PRN PAIN MED GIVEN PER SEP.
--- NOTE | 2019-05-01 14:54 | NUR ---
PATIENT BACK TO BED WITH ASSIST.VSS.
--- NOTE | 2019-05-01 15:10 | NUR ---
PATIENT RESTING QUIETLY, VSS, NO NEEDS AT THIS TIME.
--- NOTE | 2019-05-01 15:51 | NUR ---
REPORT CALLED TO MILTON CARBAJAL, TO TRANSFER TO ROOM 2238. PATIENT TRANSPORTED WIHT BELONGINGS VIA WHEELCHAIR.
--- NOTE | 2019-05-01 16:20 | NUR ---
RCVED PT VIA WHEELCHAIR AND HOSPITAL STAFF FROM ICU. PT IS ALERT AND ORIENTED WITH NO S/S OF DISTRESS AT THIS TIME. IV LOCATED TO RIGHT FOREARM CURRENTLY SL. VITALS STABLE. DENIES ANYNEEDS AT THIS TIME BUT WILL CONT TO MONITOR.
--- NOTE | 2019-05-01 20:00 | NUR ---
ASSESSMENT PER FLOWSHEET. IV PATENT RT FOREARM KAREN MAT IN USE. PT IS BLIND NOTED AT HEAD OF BED. SR UP X2 CALL LIGHT WITHIN REACH. SLING TO LEFT ARM COCK UP SPLINT TO LEFT WRIST/ARM.
--- NOTE | 2019-05-01 21:52 | NUR ---
C/O PAIN TO LEFT ELBOW FX SITE. TYLENOL 650MGM PO GIVEN FOR PAIN CONTROL.
--- NOTE | 2019-05-01 22:00 | NUR ---
UP TP BR WITH HELP VOIDS WELL.
--- NOTE | 2019-05-02 | NUR ---
EYES CLOSED RESPIRATIONS WITH EASE AND UNLABORED.
[2019-05-02 01:11] VITALS: BP 150/74
--- NOTE | 2019-05-02 01:32 | NUR ---
TELM. ON SHOWS SB WITH HR 58. COMPLETE BED BATH DONE PER CHIEF ENVIRONMENTAL COMMITMENT OFFICER KARLEE.
[2019-05-02 05:43] VITALS: BP 134/80
[2019-05-02 06:16] LABS: BASOPHILS 0.3 % (0-2); EOSINOPHILS 7.7 % (0-7); HEMATOCRIT 37.2 % (36.0-48.0); HEMOGLOBIN 11.7 g/dL (12-16); IMMATURE GRANULOCYTES 0.2 % (0-5); LYMPHOCYTES 33.1 % (15-50); MCH 29.5 pg (26.0-34.0); MCHC 31.5 g/dL (31.0-37.0); MCV 93.9 fL (80.0-100.0); MEAN PLATELET VOLUME 11.7 fL (7.4-10.4); MONOCYTES 11.6 % (2-11); NEUTROPHILS 47.1 % (40-80); PLATELET COUNT 133 10x3/uL (130-400); RBC 3.96 10x6/uL (4.00-5.40); RDW 13.6 % (11.5-14.5); WBC 6.4 10x3/uL (4.8-10.8)
[2019-05-02 06:41] LABS: ALBUMIN 2.7 g/dL (3.4-5.0); ANION GAP 11.7 mmol/L (8-16); BILIRUBIN - TOTAL 0.24 mg/dL (0.2-1.3); CARBON DIOXIDE 30.5 mmol/L (21.0-32.0); CREATININE - SERUM 0.8 mg/dL (0.6-1.3); POTASSIUM - SERUM 4.2 mmol/L (3.5-5.1); PROTEIN - SERUM 5.9 g/dL (6.4-8.2)
--- NOTE | 2019-05-02 07:33 | NUR ---
PT RESTING IN BED WITH EYES CLOSED BREATHING EVEN AND NONLABORED WITH NO S/S OF DISTRESS. IV LOCATED TO RIGHT FA CURRENTLY SL. BED LOW, CALL LIGHT IN REACH, WILL CONT TO MONITOR.
[2019-05-02 08:46] VITALS: BP 175/57
[2019-05-02 12:10] VITALS: BP 152/51
--- NOTE | 2019-05-02 16:18 | MORECARE ---
CASE MANAGEMENT DISCHARGE SUMMARY PATIENT: LULU SLATER UNIT: [id number] ADM DATE: 04/30/19 AGE: 74 : 47 SEX: F ROOM/BED: D.2238 AUTHOR: TYRA TREVINO PHYSICIAN: REFERRING PHYSICIAN: FRANTZ CABA DO DATE OF SERVICE: 05/02/19 Discharge Plan Patient Name: LULU SLATER Facility: [facility]:[place] : 1945 Planned Disposition: Home Anticipated Discharge Date: Discharge Date: Expected LOS: Initial Reviewer: [email or web address] Initial Review Date: 05/02/2019 Generated: 05/02/19 5:17 pm Comments DCP- Discharge Planning Updated by [email or web address]: Lashaun Ramirez on 05/01/19 4:[address] CM attempted to meet with patient regarding discharge planning. Patient requested CM to come back once daughter has arrived. CM requested nursing to call ext [phone] once daughter is here. CM will continue to follow and assist as needed with discharge planning / needs. DCPIA - Discharge Planning Initial Assessment Updated by [email or web address]: Vicki Lincoln on 05/02/19 4:17 pm * Is the patient Alert and Oriented? Yes * PCP No PCP * Pharmacy [facility] * Preadmission Environment Home Alone * ADLs Partial Dependent * Partial ADLs (Assistance needed) Ambulation * Equipment Bedside Commode Cane Walker * List name and contact numbers for known caregivers / representatives who currently or will assist patient after discharge: Edith Fierro [facility] - [phone]? * Verbal permission to speak to the caregivers and representatives has been obtained from the patient. Yes * Community resources currently utilized None * Additional services required to return to the preadmission environment? No * Can the patient safely return to the preadmission environment? Yes * Has this patient been hospitalized within the prior 30 days at any hospital? No Patient Name: LULU SLATER Page [id number] at 1618 All edits/amendments must be made on the electronic document DICTATION DATE: 05/02/19 1617 SALES CLOSER: GABINO 05/02/191616 RPT#: [id number] DC DATE: STATUS: ADM IN [facility] [address] [place] [address] END OF REPORT
--- NOTE | 2019-05-02 16:27 | MORECARE ---
CASE MANAGEMENT DISCHARGE SUMMARY PATIENT: LULU SLATER UNIT: [id number] ADM DATE: 04/30/19 AGE: 74 : 47 SEX: F ROOM/BED: D.2238 AUTHOR: BELINDADOC PHYSICIAN: REFERRING PHYSICIAN: FRANTZ CABA DO DATE OF SERVICE: 05/02/19 Discharge Plan Patient Name: LULU SLATER Facility: [facility]:[place] : 1945 Planned Disposition: Home Anticipated Discharge Date: Discharge Date: Expected LOS: Initial Reviewer: [email or web address] Initial Review Date: 05/02/2019 Generated: 05/02/19 5:27 pm Comments DCP- Discharge Planning Updated by [email or web address]: Vicki Linclon on 05/02/19 3:[address] Patient Name: LULU SLATER Admission Status: Elective Accout number: [id number] Admission Date: 04-30-2019 : 1945 Admission Diagnosis: Attending: FRANTZ CABA Current LOS: 2 Anticipated DC Date: Planned Disposition: Home Primary Insurance: MEDICARE A & B Discharge Planning Comments: CM met with patient to complete initial dc planning assessment. CM educated patient on the CM role and verbal consent given by patient to complete assessment. Patient lives in an apartment next door to her daughter. At discharge patient plans to return and feels this is a safe discharge. CM discussed availability of home health, rehab services, and medical equipment. Patient denied known discharge needs at this time. States that she thinks her daughter is getting her some home care. I attempted to call her daughter at [phone] and left a message on her answering machine to return my call. CM will continue to follow and will assist as needed with dc plans/needs. Lump Inspector: Vicki Lincoln DCP- Discharge Planning Updated by [email or web address]: Lashaun Ramirez on 05/01/19 4:[address] CM attempted to meet with patient regarding discharge planning. Patient requested CM to come back once daughter has arrived. CM requested nursing to call ext [phone] once daughter is here. CM will continue to follow and assist as needed with discharge planning / needs. DCPIA - Discharge Planning Initial Assessment Updated by [email or web address]: Vicki Lincoln on 05/02/19 4:17 pm * Is the patient Alert and Oriented? Yes * PCP No PCP * Pharmacy [facility] * Preadmission Environment Home Alone * ADLs Partial Dependent * Partial ADLs (Assistance needed) Ambulation * Equipment Bedside Commode Cane Walker * List name and contact numbers for known caregivers / representatives who currently or will assist patient after discharge: Edith Fierro - DTR - [phone]? * Verbal permission to speak to the caregivers and representatives has been obtained from the patient. Yes * Community resources currently utilized None * Additional services required to return to the preadmission environment? No * Can the patient safely return to the preadmission environment? Yes * Has this patient been hospitalized within the prior 30 days at any hospital? No Last DP export: 05/02/19 3:18 Patient Name: LULU SLATER Page [id number] at 1627 All edits/amendments must be made on the electronic document DICTATION DATE: 05/02/191626 CORRUGATOR HELPER: GABINO 05/02/191626 RPT#: [id number] DC DATE: STATUS: ADM IN [facility] [address] [place] [address] END OF REPORT
[2019-05-02 16:35] VITALS: BP 155/72
--- NOTE | 2019-05-02 17:13 | MORECARE ---
CASE MANAGEMENT DISCHARGE SUMMARY PATIENT: LULU SLATER UNIT: [id number] ADM DATE: 04/30/19 AGE: 74 : 47 SEX: F ROOM/BED: D.2238 AUTHOR: TYRA TREVINO PHYSICIAN: REFERRING PHYSICIAN: FRANTZ CABA DO DATE OF SERVICE: 05/02/19 Discharge Plan Patient Name: LULU SLATER Facility: [facility]:[place] : 1945 Planned Disposition: Home Anticipated Discharge Date: Discharge Date: Expected LOS: Initial Reviewer: [email or web address] Initial Review Date: 05/02/2019 Generated: 05/02/19 6:13 pm Comments DCP- Discharge Planning Updated by [email or web address]: Vicki Salazar on 05/02/19 4:[address] Patient's daughter returned my call, states they live at [address] [place] [address]. States her mother lives on the bottom floor and she lives on the top floor. States she has an aide that will be assisting her mother 3 hours a day/5 days a week. States she is applying for a night aide to assist with her mother as well. She states that her sister may be able to provide discharge transportation. CM will continue to follow and assist with discharge planning/needs. DCP- Discharge Planning Updated by [email or web address]: Vicki Salazar on 05/02/19 3:[address] Patient Name: LULU SLATER Admission Status: Elective Accout number: [id number] Admission Date: 04-30-2019 : 1945 Admission Diagnosis: Attending: FRANTZ CABA Current LOS: 2 Anticipated DC Date: Planned Disposition: Home Primary Insurance: MEDICARE A & B Discharge Planning Comments: CM met with patient to complete initial dc planning assessment. CM educated patient on the CM role and verbal consent given by patient to complete assessment. Patient lives in an apartment next door to her daughter. At discharge patient plans to return and feels this is a safe discharge. CM discussed availability of home health, rehab services, and medical equipment. Patient denied known discharge needs at this time. States that she thinks her daughter is getting her some home care. I attempted to call her daughter at [phone] and left a message on her answering machine to return my call. CM will continue to follow and will assist as needed with dc plans/needs. State Highway Police Officer: Vicki Nelsonkingsley DCP- Discharge Planning Updated by [email or web address]: Lashaun James on 05/01/19 4:[address] CM attempted to meet with patient regarding discharge planning. Patient requested CM to come back once daughter has arrived. CM requested nursing to call ext [phone] once daughter is here. CM will continue to follow and assist as needed with discharge planning / needs. DCPIA - Discharge Planning Initial Assessment Updated by [email or web address]: Vicki Salazar on 05/02/19 4:17 pm * Is the patient Alert and Oriented? Yes * PCP No PCP * Pharmacy [facility] * Preadmission Environment Home Alone * ADLs Partial Dependent * Partial ADLs (Assistance needed) Ambulation * Equipment Bedside Commode Cane Walker * List name and contact numbers for known caregivers / representatives who currently or will assist patient after discharge: Edith Fierro - DTR - [phone]? * Verbal permission to speak to the caregivers and representatives has been obtained from the patient. Yes * Community resources currently utilized None * Additional services required to return to the preadmission environment? No * Can the patient safely return to the preadmission environment? Yes * Has this patient been hospitalized within the prior 30 days at any hospital? No Last DP export: 05/02/19 3:27 Patient Name: LULU SLATER Page [phone] at 1713 All edits/amendments must be made on the electronic document DICTATION DATE: 05/02/191712 SHAFT MECHANIC: GABINO 05/02/191712 RPT#: [id number] DC DATE: STATUS: ADM IN [facility] [address] [place] [address] END OF REPORT
[2019-05-02 20:00] VITALS: BP 156/49
--- NOTE | 2019-05-02 20:00 | NUR ---
ASSESSMENT PER FLOWSHEET.SLING TO LEFT ARM IN PLACE WITH COCKUP ARM SPLINT TO LEFT ARM. PT IS BLIND. TELM. SHOWS SBRADY WITH HR 56. NO DISTRESS. SCD'S ON.
--- NOTE | 2019-05-02 20:41 | NUR ---
C/O PAIN TO LEFT ARM. ULTRAM 50MG TAB ONE PO GIVEN FOR PAIN CONTROL. UP WITH HELP TO BR VOIDS WELL.SALINE LOCK PATENT RT FOREARM.
--- NOTE | 2019-05-02 22:00 | NUR ---
RESTING QUIETLY DENIES NEEDS.
--- NOTE | 2019-05-03 01:00 | NUR ---
UP TO BSC VOIDS FREELY ASSISTED BACK TO BED.
--- NOTE | 2019-05-03 03:55 | NUR ---
EYES CLOSED ESPIRATIONS WITH EASE AND UNLABORED.
[2019-05-03 04:00] VITALS: BP 187/51
[2019-05-03 05:57] LABS: BASOPHILS 0.3 % (0-2); EOSINOPHILS 3.3 % (0-7); HEMATOCRIT 40.9 % (36.0-48.0); HEMOGLOBIN 12.9 g/dL (12-16); IMMATURE GRANULOCYTES 0.1 % (0-5); LYMPHOCYTES 18.3 % (15-50); MCH 30.1 pg (26.0-34.0); MCHC 31.5 g/dL (31.0-37.0); MCV 95.6 fL (80.0-100.0); MEAN PLATELET VOLUME 11.6 fL (7.4-10.4); MONOCYTES 8.8 % (2-11); NEUTROPHILS 69.2 % (40-80); PLATELET COUNT 128 10x3/uL (130-400); RBC 4.28 10x6/uL (4.00-5.40); RDW 13.6 % (11.5-14.5); WBC 7.1 10x3/uL (4.8-10.8)
[2019-05-03 06:30] LABS: ALBUMIN 3.1 g/dL (3.4-5.0); ALKALINE PHOSPHATASE 83 U/L (46-116); BILIRUBIN - TOTAL 0.33 mg/dL (0.2-1.3); CALC OSMOLALITY 287 mosm/kg (275-300); CALCIUM 8.5 mg/dL (8.5-10.1); CHLORIDE - SERUM 106 mmol/L (98-107); CREATININE - SERUM 0.6 mg/dL (0.6-1.3); GLUCOSE 92 mg/dL (74-106); POTASSIUM - SERUM 4.5 mmol/L (3.5-5.1); PROTEIN - SERUM 6.8 g/dL (6.4-8.2); SODIUM 143 mmol/L (136-145); UREA NITROGEN 22 mg/dL (7-18); eGFR NON AFRICAN AMERICAN > 90 mL/min (90-120)
[2019-05-03 06:31] LABS: ALT (SGPT) 37 U/L (10-68)
--- NOTE | 2019-05-03 07:43 | NUR ---
PT RESTING, EYES CLOSED. RR EVEN AND UNLABORED. SLING AND WRIST CAST NOTED TO LEFT ARM. NO DISTRESS NOTED. BED IN LOWEST POSITION. CALL LIGHT WITHIN REACH. WILL CONTINUE TO MONITOR.
[2019-05-03 08:24] VITALS: BP 128/60; BP 137/65
[2019-05-03 11:51] VITALS: BP 160/52
[2019-05-03] MEDS ORDERED: NORVASC5 MG PO (12:23)
[2019-05-03] MEDS ORDERED: PROTONIX40 MG PO (12:24)
[2019-05-03] MEDS ORDERED: ULTRAM50 MG PO (12:24)
--- NOTE | 2019-05-03 12:50 | MORECARE ---
CASE MANAGEMENT DISCHARGE SUMMARY PATIENT: LULU SLATER UNIT: [id number] ADM DATE: 04/30/19 AGE: 74 : [birth year] SEX: F ROOM/BED: D.2238 AUTHOR: TYRA TREVINO PHYSICIAN: REFERRING PHYSICIAN: FRANTZ CABA DO DATE OF SERVICE: 05/03/19 Discharge Plan Patient Name: LULU SLATER Facility: [facility]:[place] : 1945 Planned Disposition: Home Anticipated Discharge Date: Discharge Date: Expected LOS: Initial Reviewer: [email or web address] Initial Review Date: 05/02/2019 Generated: 05/03/19 1:50 pm Comments DCP- Discharge Planning Updated by [email or web address]: Vicki Lincoln on 05/03/19 11:[address] Caba would like patient to have rehab. I spoke with the patient and she agrees. [facility] rehab screen ordered. I called Maria Fernanda in rehab and she states she will review. I left a message on her daughter, Vincent, answering machine. CM will continue to follow and assist with discharge planning/needs. DCP- Discharge Planning Updated by [email or web address]: Vicki Lincoln on 05/02/19 4:[address] Patient's daughter returned my call, states they live at [address] [place] [address]. States her mother lives on the bottom floor and she lives on the top floor. States she has an aide that will be assisting her mother 3 hours a day/5 days a week. States she is applying for a night aide to assist with her mother as well. She states that her sister may be able to provide discharge transportation. CM will continue to follow and assist with discharge planning/needs. DCP- Discharge Planning Updated by [id number]: Vicki Lincoln on 05/02/19 3:[address] Patient Name: LULU SLATER Admission Status: Elective Accout number: [id number] Admission Date: 04-30-2019 : 1945 Admission Diagnosis: Attending: FRANTZ CABA Current LOS: 2 Anticipated DC Date: Planned Disposition: Home Primary Insurance: MEDICARE A & B Discharge Planning Comments: CM met with patient to complete initial dc planning assessment. CM educated patient on the CM role and verbal consent given by patient to complete assessment. Patient lives in an apartment next door to her daughter. At discharge patient plans to return and feels this is a safe discharge. CM discussed availability of home health, rehab services, and medical equipment. Patient denied known discharge needs at this time. States that she thinks her daughter is getting her some home care. I attempted to call her daughter at [phone] and left a message on her answering machine to return my call. CM will continue to follow and will assist as needed with dc plans/needs. Certified Master Safe Technician: Vicki Lincoln DCP- Discharge Planning Updated by [email or web address]: Lashaun Ramirez on 05/01/19 4:[address] CM attempted to meet with patient regarding discharge planning. Patient requested CM to come back once daughter has arrived. CM requested nursing to call ext [phone] once daughter is here. CM will continue to follow and assist as needed with discharge planning / needs. DCPIA - Discharge Planning Initial Assessment Updated by [email or web address]: Vicki Lincoln on 05/02/19 4:17 pm * Is the patient Alert and Oriented? Yes * PCP No PCP * Pharmacy [facility] on [facility] * Preadmission Environment Home Alone * ADLs Partial Dependent * Partial ADLs (Assistance needed) Ambulation * Equipment Bedside Commode Cane Walker * List name and contact numbers for known caregivers / representatives who currently or will assist patient after discharge: Edith Fierro - DTR - [phone]? * Verbal permission to speak to the caregivers and representatives has been obtained from the patient. Yes * Community resources currently utilized None * Additional services required to return to the preadmission environment? No * Can the patient safely return to the preadmission environment? Yes * Has this patient been hospitalized within the prior 30 days at any hospital? No Coverage Notice Reviewer: [id number] - Vicki Lincoln Notice Issued Date-Time: 05/03/2019 8:13 Notice Type: IM Discharge Notice Notice Delivered To: Patient Relationship to Patient: Self Extractor Filler Name: Delivery Method: HAND - Hand Delivered Alysa Days: Prior Verbal Notification: Recipient Understood Notice: Yes Recipient Signature: Yes Med Rec Note Co-signed by Attending: Coverage Notice Comment: IMM explained, signed, given, copy placed in MR. She states she is ready for discharge and I read the IMM notice to her and informed we would help her dial the phone if needed, voiced understanding. Last DP export: 05/02/19 4:13 Patient Name: LULU SLATER Page [id number] at 1250 All edits/amendments must be made on the electronic document DICTATION DATE: 05/03/191248 CABINET INSTALLER: GABINO 05/03/191248 RPT#: [id number] DC DATE: STATUS: ADM IN [facility] [address] [place] [address] END OF REPORT
--- NOTE | 2019-05-03 14:00 | NUR ---
REHAB PRESCREENING Rehab referral received and chart reviewed. This patient does not have a diagnosis appropriate for acute inpatient rehab in order to meet admission criteria. Recommend skilled rehab placement. Thank you for this referral! Karine Siegel, STRUCTURAL ARCHITECT Rehab PD
[2019-05-03 16:29] VITALS: BP 173/55
--- NOTE | 2019-05-03 17:00 | NUR ---
REPORT CALLED TO CHERI IN REHAB. REQUESTED THE PT BE TRANSFERRED AFTER DINNER.
--- NOTE | 2019-05-03 17:52 | NUR ---
PT ASSISTED GETTING DRESSED. IV D/C TO RIGHT FOREARM WITH CATHETER TIP INTACT. PT UNABLE TO SIGN DUE TO BEING LEGALLY BLIND. REHAB MADE AWARE OF PT COMING DOWN. D/C WITH ALL BELONGINGS VIA WHEELCHAIR TO REHAB FLOOR. MONITOR RETURNED TO VOCATIONAL NURSE.
--- NOTE | 2019-05-05 11:34 | MORECARE ---
CASE MANAGEMENT DISCHARGE SUMMARY PATIENT: LULU SLATER UNIT: [id number] ADM DATE: 04/30/19 AGE: 74 : [birth year] SEX: F ROOM/BED: D.2238 AUTHOR: TYRA TREVINO PHYSICIAN: REFERRING PHYSICIAN: FRANTZ CABA DO DATE OF SERVICE: 05/05/19 Discharge Plan Patient Name: LULU SLATER Facility: [facility]:[place] : 1945 Planned Disposition: Home Anticipated Discharge Date: Discharge Date: 05/03/2019 Expected LOS: Initial Reviewer: [email or web address] Initial Review Date: 05/02/2019 Generated: 05/05/19 12:33 pm Comments DCP- Discharge Planning Updated by [email or web address]: Vicki Lincoln on 05/03/19 11:[address] Caba would like patient to have rehab. I spoke with the patient and she agrees. [facility] rehab screen ordered. I called Maria Fernanda in rehab and she states she will review. I left a message on her daughter, Vincent, answering machine. CM will continue to follow and assist with discharge planning/needs. DCP- Discharge Planning Updated by [id number]: Vicki Lincoln on 05/02/19 4:[address] Patient's daughter returned my call, states they live at [address] [place] [address]. States her mother lives on the bottom floor and she lives on the top floor. States she has an aide that will be assisting her mother 3 hours a day/5 days a week. States she is applying for a night aide to assist with her mother as well. She states that her sister may be able to provide discharge transportation. CM will continue to follow and assist with discharge planning/needs. DCP- Discharge Planning Updated by [email or web address]: Vicki Lincoln on 05/02/19 3:[address] Patient Name: LULU SLATER Admission Status: Elective Accout number: [id number] Admission Date: 04-30-2019 : 1945 Admission Diagnosis: Attending: FRANTZ CABA Current LOS: 2 Anticipated DC Date: Planned Disposition: Home Primary Insurance: MEDICARE A & B Discharge Planning Comments: CM met with patient to complete initial dc planning assessment. CM educated patient on the CM role and verbal consent given by patient to complete assessment. Patient lives in an apartment next door to her daughter. At discharge patient plans to return and feels this is a safe discharge. CM discussed availability of home health, rehab services, and medical equipment. Patient denied known discharge needs at this time. States that she thinks her daughter is getting her some home care. I attempted to call her daughter at [phone] and left a message on her answering machine to return my call. CM will continue to follow and will assist as needed with dc plans/needs. Jewelry Bearing Maker: Vicki Lincoln DCP- Discharge Planning Updated by [email or web address]: Lashaundonald Guillaumer on 05/01/19 4:[address] CM attempted to meet with patient regarding discharge planning. Patient requested CM to come back once daughter has arrived. CM requested nursing to call ext [phone] once daughter is here. CM will continue to follow and assist as needed with discharge planning / needs. DCPIA - Discharge Planning Initial Assessment Updated by [email or web address]: Vicki Lincoln on 05/02/19 4:17 pm * Is the patient Alert and Oriented? Yes * PCP No PCP * Pharmacy [facility] on [address] * Preadmission Environment Home Alone * ADLs Partial Dependent * Partial ADLs (Assistance needed) Ambulation * Equipment Bedside Commode Cane Walker * List name and contact numbers for known caregivers / representatives who currently or will assist patient after discharge: Edith Fierro - DTR - [phone]? * Verbal permission to speak to the caregivers and representatives has been obtained from the patient. Yes * Community resources currently utilized None * Additional services required to return to the preadmission environment? No * Can the patient safely return to the preadmission environment? Yes * Has this patient been hospitalized within the prior 30 days at any hospital? No Coverage Notice Reviewer: [id number] - Vicki Lincoln Notice Issued Date-Time: 05/03/2019 8:13 Notice Type: IM Discharge Notice Notice Delivered To: Patient Relationship to Patient: Self Tag Maker Name: Delivery Method: HAND - Hand Delivered Alysa Days: Prior Verbal Notification: Recipient Understood Notice: Yes Recipient Signature: Yes Med Rec Note Co-signed by Attending: Coverage Notice Comment: IMM explained, signed, given, copy placed in MR. She states she is ready for discharge and I read the IMM notice to her and informed we would help her dial the phone if needed, voiced understanding. Last DP export: 05/03/19 11:50 Patient Name: LULU SLATER Page [id number] at 1134 All edits/amendments must be made on the electronic document DICTATION DATE: 05/05/19 113 SPRING BENDER: GABINO 05/05/19 1133 RPT#: [id number] DC DATE:05/03/19 STATUS: DIS IN [facility] [address] [place] [address] END OF REPORT
== END 2019-05-03 18:00 | DRG 305 ==
LOC: D.ER 08:19 → D.ICU 11:32 → D.MS 11:32
PROVIDERS: Family Medicine; ADMIT Family Medicine; ATTEND Family Medicine
DX: I16.1 Hypertensive emergency (principal); S52.102A Unspecified fracture of upper end of left radius, initial encounter for closed fracture; I10 Essential (primary) hypertension; I25.10 Atherosclerotic heart disease of native coronary artery without angina pectoris; M19.90 Unspecified osteoarthritis, unspecified site; F32.9 Major depressive disorder, single episode, unspecified; F03.90 Unspecified dementia, unspecified severity, without behavioral disturbance, psychotic disturbance, mood disturbance, and anxiety; F20.9 Schizophrenia, unspecified; Z86.73 Personal history of transient ischemic attack (TIA), and cerebral infarction without residual deficits; W19.XXXA Unspecified fall, initial encounter; Y92.009 Unspecified place in unspecified non-institutional (private) residence as the place of occurrence of the external cause

== ENCOUNTER 2019-05-03 16:54 | Inpatient (IN) | payer MEDICARE ==
[~2019-05-03] VITALS: Ht 162.6 cm; Wt 62.1 kg
[~2019-05-03 16:54] MED LIST changes: +NORVASC5 MG PO; +PROTONIX40 MG PO; +ULTRAM50 MG PO
--- NOTE | 2019-05-03 17:55 | NUR ---
RECIEVED FROM ACUTE FLOOR TO ROOM 1112B.ORIENTED TO ROOM AND CL.
[2019-05-03 19:22] VITALS: BP 120/48
--- NOTE | 2019-05-03 19:33 | NUR ---
GREETED PATIENT AND INTRODUCED MYSELF. PATIENT IS LAYING IN BED LISTENING TO TV. RESPIRATIONS EVEN. NO S/S OF DISTRESS. CALL LIGHT IN REACH. DENIES ANY FURTHER NEEDS AT THIS TIME.
[2019-05-03 21:50] VITALS: BP 120/48; BMI 23.5
--- NOTE | 2019-05-03 22:38 | NUR ---
DR BARBA NOTIFIED AND REVIEWED PT's BEHAVIOR AND ASSESSMENT RESULTS. PT IS A LOW RISK PER DR BARBA. DR BARBA STATED TO GIVE RESOURCES TO PT AT TIME OF DISCHARGE. NO FURTHER ORDERS AT THIS TIME. RESOURCES REVIED WITH PT AND SHE VERBALIZED UNDERSTANDING.
--- NOTE | 2019-05-04 00:40 | NUR ---
PATIENT RESTING QUIETLY WITH EYES CLOSED. RESPIRATIONS EVEN. NO S/S OF DISTRESS. CALL LIGHT IN REACH.
[2019-05-04 07:42] LABS: BASOPHILS 0.2 % (0-2); EOSINOPHILS 4.6 % (0-7); HEMATOCRIT 39.6 % (36.0-48.0); HEMOGLOBIN 12.4 g/dL (12-16); IMMATURE GRANULOCYTES 0.2 % (0-5); LYMPHOCYTES 25.4 % (15-50); MCH 29.7 pg (26.0-34.0); MCHC 31.3 g/dL (31.0-37.0); MEAN PLATELET VOLUME 11.2 fL (7.4-10.4); MONOCYTES 11.4 % (2-11); NEUTROPHILS 58.2 % (40-80); PLATELET COUNT 135 10x3/uL (130-400); RBC 4.17 10x6/uL (4.00-5.40); RDW 13.2 % (11.5-14.5); WBC 5.9 10x3/uL (4.8-10.8)
[2019-05-04 07:55] LABS: CALC OSMOLALITY 282 mosm/kg (275-300); CALCIUM 8.4 mg/dL (8.5-10.1); CARBON DIOXIDE 32.1 mmol/L (21.0-32.0); CHLORIDE - SERUM 105 mmol/L (98-107); CREATININE - SERUM 0.5 mg/dL (0.6-1.3); GLUCOSE 82 mg/dL (74-106); POTASSIUM - SERUM 4.1 mmol/L (3.5-5.1); SODIUM 142 mmol/L (136-145); eGFR NON AFRICAN AMERICAN > 90 mL/min (90-120)
[2019-05-04 07:57] VITALS: BP 181/47
[2019-05-04 07:59] LABS: UREA NITROGEN 16 mg/dL (7-18)
--- NOTE | 2019-05-04 08:00 | NUR ---
PATIENT IS ALERT/ORIENT. COMPLETELY BLIND. CALL LIGHT WITHIN REACH. PATIENT ABLE TO USE CALL LIGHT WITH RASIED BUTTON. VOICES NO NEED AT THIS TIME. WILL CONTINUE WITH PLAN OF CARE
--- NOTE | 2019-05-04 09:54 | NUR ---
PATIENT IN REHAB. WORKING WITH PHYSICAL THERAPIST. DENIES ANY PAIN/DISC AT THIS TIME.
--- NOTE | 2019-05-04 10:23 | NUR ---
The patient is participating in physical therapy in the gym and Dr. Billingsley told her "The plan is to get her stronger so that she can go home." The patient is agreeable with that.
--- NOTE | 2019-05-04 10:53 | NUR ---
PATIENT ADMITTED TO REHAB FROM ACUTE FLOOR. HER PCP IS DR. FUETNES. DME AT HOME IS A CANE, WALKER AND A BEDSIDE COMMODE. PATIENT LIVES ALONE BUT HER DAUGHTER LIVES ABOVE HER IN THE APARTMENT BUILDING. DISCHARGE PLANS ARE FOR PATIENT TO RETURN HOME. WILL CONTINUE TO FOLLOW WITH PATIENT.
[2019-05-04 12:18] VITALS: Ht 162.6 cm; Wt 62.1 kg
--- NOTE | 2019-05-04 17:18 | NUR ---
PATIENT IS A MOD ASST FROM BED INTO WHEELCHAIR. SITTING UP IN WHEELCHAIR AT BEDSIDE TO EAT SUPPER.
[2019-05-04 19:00] VITALS: BP 134/47
--- NOTE | 2019-05-04 19:07 | NUR ---
GREETED PATIENT AND INTRODUCED MYSELF HER NURSE. PATIENT IS SITTING IN WHEELCHAIR LISTENING TO TV. RESPIRATIONS EVEN. NO S/S OF DISTRESS. MODIFIED CALL LIGHT IN REACH. STATES THAT PAIN IS 5/10 IN RIGHT SHOULDER.
--- NOTE | 2019-05-05 00:18 | NUR ---
PT. AWAKE AND ASSISTED TO BATHROOM USING WHEELCHAIR. BACK TO BED AND REPOSITIONED FOR COMFORT. CALL LIGHT IN REACH.
--- NOTE | 2019-05-05 06:13 | NUR ---
PT. AWAKE AND CLEANED OF INCONTINENT URINE. PATIENT SITTING IN WHEELCHAIR LISTENING TO TV. MODIFIED CALL LIGHT WITHIN REACH.
[2019-05-05 07:46] VITALS: BP 145/86
--- NOTE | 2019-05-05 08:15 | NUR ---
PT RESTING IN BED WITH EYES OPEN CALL LIGHT IN REACH NO PROBLEMS WILL
--- NOTE | 2019-05-05 08:15 | NUR ---
PT RESTING IN BED WITH EYES OPEN CALL LIGHT IN REACH WILL MONITER
--- NOTE | 2019-05-05 20:00 | NUR ---
PATIENT RECEIVED SITTING UP IN WHEELCHAIR. PATIENT ASSESSMENT & VITAL SIGNS DONE. PATIENT TOILETED & HAD VOID. PATIENT UPPER DENTURE REMOVED. MOUTH RINSED. PATIENT RETURNED TO BED WITH MINIMAL ASSIST. NO C/O PAIN OR DISTRESS. BED LOW. CALL LIGHT WITHIN REACH. ALARM ON. WILL CONTINUE TO MONITOR.
[2019-05-05 20:17] VITALS: BP 136/55
--- NOTE | 2019-05-05 20:20 | NUR ---
PATIENT TOILETED, HAD VOID. RETURNED TO BED OUT OF WHEELCHAIR. PATIENT DIRECTED & FOLLOWED DIRECTIONS INTO BED & OFF THE COMMODE. BED LOW. CALL LIGHT WITHIN REACH. ALARM ON. WILL CONTINUE TO MONITOR.
--- NOTE | 2019-05-06 00:53 | NUR ---
I have reviewed this patient and I concur with the Shift Assessment completed by the Licensed Practical Nurse today this shift.
--- NOTE | 2019-05-06 03:00 | NUR ---
PATIENT EYES CLOSED. RESPIRATIONS 18 & EVEN. BED LOW. CALL LIGHT WITHIN REACH. WILL CONTINUE TO MONITOR.
--- NOTE | 2019-05-06 08:15 | NUR ---
PT RESTING IN BED EATING BREAKFAST CALL LIGHT IN REACH NO PROBLEMS WILL MONITER
--- NOTE | 2019-05-06 10:30 | NUR ---
I have reviewed this patient and I concur with the Shift Assessment completed by the Licensed Practical Nurse today this shift.
--- NOTE | 2019-05-06 15:39 | NUR ---
PT RESTING IN BED WITH EYES OPEN CALL LIGHT IN REACH WILL MONITER
--- NOTE | 2019-05-06 19:34 | NUR ---
PT RESTING QUIETLY. CL IN REACH. EYES CLOSED. NO DISTRESS NOTED. BED IN LOW SIDE RAILS X2. BED ALARM ON. RESP EVEN AND UNLABORED. WILL CONTINUE TO MONITOR.
[2019-05-06 20:54] VITALS: BP 166/64
--- NOTE | 2019-05-07 02:50 | NUR ---
I have reviewed this patient and I concur with the Shift Assessment completed by the Licensed Practical Nurse today this shift.
[2019-05-07 07:01] LABS: BASOPHILS 0.1 % (0-2); EOSINOPHILS 3.3 % (0-7); HEMATOCRIT 41.5 % (36.0-48.0); HEMOGLOBIN 13.1 g/dL (12-16); IMMATURE GRANULOCYTES 0.1 % (0-5); MCH 29.8 pg (26.0-34.0); MCHC 31.6 g/dL (31.0-37.0); MCV 94.3 fL (80.0-100.0); MEAN PLATELET VOLUME 11.1 fL (7.4-10.4); MONOCYTES 15.2 % (2-11); NEUTROPHILS 57.3 % (40-80); RDW 13.1 % (11.5-14.5); WBC 6.7 10x3/uL (4.8-10.8)
[2019-05-07 07:02] LABS: PLATELET COUNT 166 10x3/uL (130-400)
[2019-05-07 07:18] LABS: CALC OSMOLALITY 286 mosm/kg (275-300); CALCIUM 8.6 mg/dL (8.5-10.1); CARBON DIOXIDE 30.8 mmol/L (21.0-32.0); CHLORIDE - SERUM 105 mmol/L (98-107); CREATININE - SERUM 0.6 mg/dL (0.6-1.3); GLUCOSE 84 mg/dL (74-106); POTASSIUM - SERUM 3.9 mmol/L (3.5-5.1); SODIUM 143 mmol/L (136-145); UREA NITROGEN 20 mg/dL (7-18); eGFR NON AFRICAN AMERICAN > 90 mL/min (90-120)
[2019-05-07 08:00] VITALS: BP 114/62
--- NOTE | 2019-05-07 08:00 | NUR ---
PATIENT IS ALERT/ORIENT. TOTALLY BLIND. CALL LIGHT HAS RAISED AREA FOR CALLING NURSES. VOICES NO NEEDS AT THIS TIME. WILL CONTINUE WITH PLAN OF CARE
--- NOTE | 2019-05-07 09:39 | NUR ---
PATIENT IN REHAB ROOM. WORKING WITH OCCUPATIONALT HERAPIST. PRN PAIN MEDICATION GIVEN FOR SHOULDER PAIN PER PATIENT REQUEST
--- NOTE | 2019-05-07 14:41 | NUR ---
PATIENT SITTING UP IN WHEELCHAIR IN ROOM. DAUGHTER VISITING. PATIENT VOICES NO NEEDS AT THIS TIME.
--- NOTE | 2019-05-07 18:50 | NUR ---
GREETED PATIENT AND INTRODUCED MYSELF HER NURSE. PATIENT IS SITTING IN WHEELCHAIR NEXT TO BEDSIDE LISTENING TO TV. RESPIRATIONS EVEN. NO S/S OF DISTRESS. RESPIRATIONS EVEN. NO S/S OF DISTRESS. CALL LIGHT IN REACH.
[2019-05-07 19:19] VITALS: BP 108/65
--- NOTE | 2019-05-07 23:55 | NUR ---
PT. RESTING QUIETLY WITH EYES CLOSED. RESPIRATIONS EVEN. NO S/S OF DISTRESS. MODIFIED CALL LIGHT WITHIN REACH.
[2019-05-08 08:00] VITALS: BP 103/48
--- NOTE | 2019-05-08 11:11 | NUR ---
Nutrition Follow-up: Diet: Cardiac PO intake: ~45% average x last 16 meals. Patient reports that her appetite has been poor "ever since the fall." States that she likes chocolate and strawberry Ensure. No BM recorded since admit. Wt: 137# (05/04/19), no new wt. Labs, meds, and nursing skin assessment all reviewed. Consider increasing bowel regimen to promote regularity and help increase appetite. Continue current diet. Will add Ensure TID with meals. Encourage PO intake. RD Following.
--- NOTE | 2019-05-08 11:25 | NUR ---
ALERT AND ORIENTED. BLIND. FOLLOWS CUES. PARTICIPATED IN THERAPY. PAIN MED GIVEN THIS AM. IN ROOM AT THIS TIME. CL IN REACH.
--- NOTE | 2019-05-08 16:27 | NUR ---
NO CHANGE IN ASSESSMENT. PAIN MED GIVEN EARLIER, RESTING WO C/O AT THIS TIME. CL IN REACH. ALARM ON.
[2019-05-08 19:30] VITALS: BP 134/42
--- NOTE | 2019-05-08 19:30 | NUR ---
BEDSIDE REPORT COMPLETE. PT LYING IN BED ON LEFT SIDE ALERT AND ORIENTED X4. DENIES ANY NEEDS. C/O LEFT ARM AND WRIST PAIN 12/11 REQUEST PAIN MEDICATION. INFORMED PT NEXT PAIN MEDICATION IS NOT DUE UNTIL 2029. PT VERBALIZED UNDERSTANDING. VS STABLE. SHIFT ASSESSMENT COMPLETE. CL IN REACH. FALL PRECAUTIONS IN PLACE. WILL CONTINUE TO MONITOR
--- NOTE | 2019-05-08 23:49 | NUR ---
QUIET HOURS. PT LYING IN BED ON LEFT SIDE EYES CLOSED RESTING. RR EVEN AND UNLABORED. CL IN REACH
--- NOTE | 2019-05-09 03:37 | NUR ---
PT LYING IN BED ON RIGHT SIDE EYES CLOSED RESTING. NO SIGN OF ACUTE DISTRESS NOTED. CL IN REACH
[2019-05-09 05:46] LABS: BASOPHILS 0.2 % (0-2); EOSINOPHILS 6.6 % (0-7); HEMATOCRIT 38.6 % (36.0-48.0); HEMOGLOBIN 12.3 g/dL (12-16); LYMPHOCYTES 28.9 % (15-50); MCH 29.9 pg (26.0-34.0); MCHC 31.9 g/dL (31.0-37.0); MCV 93.7 fL (80.0-100.0); MEAN PLATELET VOLUME 11.1 fL (7.4-10.4); MONOCYTES 14.6 % (2-11); NEUTROPHILS 49.7 % (40-80); PLATELET COUNT 185 10x3/uL (130-400); RBC 4.12 10x6/uL (4.00-5.40); RDW 13.2 % (11.5-14.5); WBC 5.2 10x3/uL (4.8-10.8)
[2019-05-09 05:52] LABS: CALC OSMOLALITY 285 mosm/kg (275-300); CALCIUM 8.8 mg/dL (8.5-10.1); CARBON DIOXIDE 31.6 mmol/L (21.0-32.0); CHLORIDE - SERUM 103 mmol/L (98-107); CREATININE - SERUM 0.5 mg/dL (0.6-1.3); GLUCOSE 89 mg/dL (74-106); POTASSIUM - SERUM 3.9 mmol/L (3.5-5.1); SODIUM 141 mmol/L (136-145); eGFR NON AFRICAN AMERICAN > 90 mL/min (90-120)
[2019-05-09 06:04] LABS: UREA NITROGEN 29 mg/dL (7-18)
--- NOTE | 2019-05-09 06:38 | NUR ---
PT SITTING UP IN W/C. ALERT AND ORIENTED X4. DENIES ANY NEEDS OR PAIN. RR EVEN AND UNLABORED. CL IN REACH
[2019-05-09 07:48] VITALS: BP 150/54
--- NOTE | 2019-05-09 08:00 | NUR ---
SHIFT ASSMT COMPLETED.
--- NOTE | 2019-05-09 15:43 | NUR ---
CARE TEAM MEETING: PATIENT PROGRESSING WELL IN THERAPY. TENTIVE DISCHARGE DATE IS 05/17/19. WILL CONTINUE TO FOLLOW WITH PATIENT.
--- NOTE | 2019-05-09 20:05 | NUR ---
AWAKE AND ALERT. RESTING IN BED WITH RESPIRATIONS UNLABORED. IMMOBILIZER IN PLACE TO LEFT ARM. NO DISTRESS NOTED. CALL LIGHT IN REACH.
[2019-05-09 21:32] VITALS: BP 78/36
--- NOTE | 2019-05-10 03:15 | NUR ---
RESTING IN BED WITH RESPIRATIONS UNLABORED. NO DISTRESS NOTED. CALL LIGHT IN REACH.
--- NOTE | 2019-05-10 06:20 | NUR ---
QUIET HOURS. NO ACUTE CHANGES IN CONDITION THIS SHIFT. NO DISTRESS NOTED. CALL LIGHT IN REACH.
--- NOTE | 2019-05-10 08:00 | NUR ---
SHIFT ASSMT COMPLETED.BREAKFAST GIVEN.
[2019-05-10 08:34] VITALS: BP 107/68
--- NOTE | 2019-05-10 12:00 | NUR ---
EATING LUNCH.DENIES NEEDS.
--- NOTE | 2019-05-10 20:22 | NUR ---
RESTING IN BED WITH RESPIRATIONS UNLABORED. NO DISTRESS NOTED. CALL LIGHT IN REACH.
[2019-05-10 21:12] VITALS: BP 142/47
--- NOTE | 2019-05-11 02:11 | NUR ---
ASSISTED TO BATHROOM AND BACK TO BED. RESTING NOW IN BED WITH NO DISTRESS NOTED. CALL LIGHT IN REACH.
--- NOTE | 2019-05-11 05:41 | NUR ---
RESTING NOW. WAS SLIGHTLY AGIATED ABOUT PAIN EARLIER AND WAS MEDICATED WITH ACETAMINOPHEN IT WAS TOO SOON TO MEDICATED WITH TRAMADOL AGAIN. SEE MAR. EYES CLOSED AND RESPIRATIONS UNLABORED. CALL LIGHT IN REACH.
[2019-05-11 07:46] LABS: BASOPHILS 0.2 % (0-2); EOSINOPHILS 7.8 % (0-7); HEMATOCRIT 37.4 % (36.0-48.0); HEMOGLOBIN 11.7 g/dL (12-16); IMMATURE GRANULOCYTES 0.2 % (0-5); LYMPHOCYTES 34.5 % (15-50); MCH 29.5 pg (26.0-34.0); MCHC 31.3 g/dL (31.0-37.0); MCV 94.4 fL (80.0-100.0); MEAN PLATELET VOLUME 11.3 fL (7.4-10.4); MONOCYTES 10.9 % (2-11); NEUTROPHILS 46.4 % (40-80); PLATELET COUNT 192 10x3/uL (130-400); RBC 3.96 10x6/uL (4.00-5.40); RDW 12.9 % (11.5-14.5); WBC 4.8 10x3/uL (4.8-10.8)
[2019-05-11 07:49] LABS: CALC OSMOLALITY 287 mosm/kg (275-300); CALCIUM 8.7 mg/dL (8.5-10.1); CARBON DIOXIDE 35.7 mmol/L (21.0-32.0); CHLORIDE - SERUM 105 mmol/L (98-107); CREATININE - SERUM 0.7 mg/dL (0.6-1.3); GLUCOSE 84 mg/dL (74-106); POTASSIUM - SERUM 4.1 mmol/L (3.5-5.1); SODIUM 143 mmol/L (136-145); UREA NITROGEN 23 mg/dL (7-18); eGFR NON AFRICAN AMERICAN 87 mL/min (90-120)
[2019-05-11 08:00] VITALS: BP 161/67
--- NOTE | 2019-05-11 08:15 | NUR ---
PT RESTING IN BED WITH EYES OPEN CALL LIGHT IN REACH NO PROBLEMS WILL MONITER
--- NOTE | 2019-05-11 18:00 | NUR ---
PT RESTING IN BED WITH EYES OPEN CALL LIGHT IN REACH NO PROBLEMS WILL MONITER
--- NOTE | 2019-05-11 20:00 | NUR ---
PATIENT RECEIVED LYING IN BED. TV ON. BED LOW. ALARM ON. ASSESSMENT & VITAL SIGNS DONE. PATIENT TOILETED HAD VOID. FACE, HANDS & MOUTH CLEANED. PATIENT RETURNED TO BED. ALARM ON. CALL LIGHT WITHIN REACH. WILL CONTINUE TO MONITOR.
[2019-05-11 20:33] VITALS: BP 100/59
--- NOTE | 2019-05-12 03:02 | NUR ---
I have reviewed this patient and I concur with the Shift Assessment completed by the Licensed Practical Nurse today this shift.
[2019-05-12 08:00] VITALS: BP 173/49
--- NOTE | 2019-05-12 08:00 | NUR ---
PATIENT IS ALERT/ORIENT. BLIND. CALL LIGHT WITHIN REACH. COTTON BALL INSPECTOR TOYS LIGHT FOR NURSE BUTTON SO PATIENT CAN USE CALL LIGHT FOR NEEDS. VOICES NO NEEDS AT THIS TIME. WILL CONTINUE WITH PLAN OF CARE
--- NOTE | 2019-05-12 12:45 | NUR ---
PATIENT SITTING UP IN WHEELCHAIR AT BEDSIDE. CALL LIGHT WITHIN REACH. PATIENT IS BLIND. THIS NURSE TOLD PATIENT WHAT WAS ON LUNCH TRAY. USING A CLOCK WHERE FOOD IS LOCATED ON TRAY. CARTONS OPENED AND MEAT CUT FOR THIS PATIENT.
--- NOTE | 2019-05-12 16:06 | NUR ---
PATIENT RESTING AFTER THERAPY. VOICES NO NEEDS AT THIS TIME. CALL LIGHT WITHIN REACH
--- NOTE | 2019-05-12 19:05 | NUR ---
PATIENT RECIEVED LAYING IN BED. ASSESSMENT & VITAL SIGNS DONE. BED LOW. CALL LIGHT WITHIN REACH. ALARM ON. WILL CONTINUE TO MONITOR.
[2019-05-12 20:00] VITALS: BP 140/83
--- NOTE | 2019-05-12 23:30 | NUR ---
FSBS 75. TEMPERATURE. 96.4 AXILLARY. PATIENT CHANGED YELLOW COLORED BM. PATIENT DAUGHTER IN ROOM. CALL LIGHT WITHIN REACH. BED LOW. WILL CONTINUE TO MONITOR.
--- NOTE | 2019-05-13 02:57 | NUR ---
I have reviewed this patient and I concur with the Shift Assessment completed by the Licensed Practical Nurse today this shift.
--- NOTE | 2019-05-13 04:35 | NUR ---
QUIET HOURS. PT LYING IN BED AWAKE AND ALERT. DENIES ANY NEEDS. NO SIGNS OF ACUTE DISTRESS NOTED. CL IN REACH
[2019-05-13 08:00] VITALS: BP 121/66
--- NOTE | 2019-05-13 08:25 | NUR ---
PATIENT IS ALERT/ORIENT. BLIND. CALL LIGHT ADJUSTED SO PATTIENT ABLE TO USE. VOICES NO NEEDS AT THIS TIME. WILL CONTINUE WITH PLAN OF CARE
--- NOTE | 2019-05-13 13:19 | NUR ---
PATIENT HELPED WITH SHOWER FROM THIS NURSE. MODERATE ASST WITH SHOWER
[2019-05-13 19:35] VITALS: BP 159/93
--- NOTE | 2019-05-13 19:35 | NUR ---
BEDSIDE REPORT COMPLETE. PT SITTING UP IN W/C. ALERT AND ORIENTED X4. ASSISTED PT TO RESTROOM WITH MIN ASSIST. VS STABLE. SHIFT ASSESSMENT COMPLETE. DENIES ANY PAIN. TRANSFERRED FROM W/C TO BED WITH MIN ASSIST. NO OTHER NEEDS VOICED. CL IN REACH. FALL PRECAUTIONS IN PLACE. WILL CONTINUE TO MONITOR
--- NOTE | 2019-05-13 23:44 | NUR ---
ASSISTED PT TO RESTROOM AND BACK TO BED WITH MIN ASSIST. PT REQUESTS PAIN MEDICATION 01/10 LOWER BACK PAIN AND LEFT SHOULDER PAIN. WILL ADMINISTER PER ORDER. CL IN REACH. BED ALARM ON
--- NOTE | 2019-05-14 03:41 | NUR ---
PT LYING IN BED EYES CLOSED RESTING QUIETLY. RR EVEN AND UNLABORED. CL IN REACH. BED ALARM ON
--- NOTE | 2019-05-14 05:35 | NUR ---
PT LYING IN BED ON LEFT SIDE EYES CLOSED RESTING. RR EVEN AND UNLABORED. CL IN REACH
[2019-05-14 06:10] LABS: CALC OSMOLALITY 289 mosm/kg (275-300); CALCIUM 8.7 mg/dL (8.5-10.1); CARBON DIOXIDE 32.9 mmol/L (21.0-32.0); CHLORIDE - SERUM 104 mmol/L (98-107); CREATININE - SERUM 0.6 mg/dL (0.6-1.3); GLUCOSE 97 mg/dL (74-106); POTASSIUM - SERUM 4.3 mmol/L (3.5-5.1); SODIUM 144 mmol/L (136-145); UREA NITROGEN 22 mg/dL (7-18); eGFR NON AFRICAN AMERICAN > 90 mL/min (90-120)
[2019-05-14 06:49] LABS: BASOPHILS 0.4 % (0-2); EOSINOPHILS 6.3 % (0-7); HEMATOCRIT 39.3 % (36.0-48.0); HEMOGLOBIN 12.3 g/dL (12-16); LYMPHOCYTES 35.2 % (15-50); MCH 29.4 pg (26.0-34.0); MCHC 31.3 g/dL (31.0-37.0); MEAN PLATELET VOLUME 10.7 fL (7.4-10.4); MONOCYTES 10.6 % (2-11); NEUTROPHILS 47.5 % (40-80); PLATELET COUNT 179 10x3/uL (130-400); RBC 4.18 10x6/uL (4.00-5.40); WBC 4.8 10x3/uL (4.8-10.8)
[2019-05-14 07:54] VITALS: BP 182/46
--- NOTE | 2019-05-14 10:01 | RHP ---
PATIENT: LULU SLATER MEDICAL RECORD: [id number] ACCOUNT: [id number] LOCATION:[facility]111 : 49 ADMISSION DATE: 05/03/19 REHABILITATION HISTORY AND PHYSICAL EXAMINATION POST ADMISSION PHYSICIAN EXAMINATION POST ADMISSION PHYSICAL EXAM AND HISTORY AND PHYSICAL DATE OF ADMISSION: 05/03/2019 ADMITTING DIAGNOSIS: Disuse myopathy. HISTORY OF PRESENT ILLNESS: The patient is a 74-year-old female patient that was admitted to the ER after a fall at home suffering an acute left wrist pain, found to have an acute mildly displaced left radial head and neck fracture. She was also found to be in hypertensive crisis with a blood pressure of 279/94. She had been out of her blood pressure medicine for a couple of weeks. She was admitted to the ICU. She had an orthopedic surgery consult. No surgical intervention was indicated at this time. She has got a history of TIA, seizures. She is legally blind, hypertension, coronary artery disease, noncompliance, arthritis, depression, schizophrenia, and dementia. She is currently having acute pain. She is on electrolyte protocol and monitoring blood pressure closely. She has got impulsive behaviors, difficulty with maintaining barriers with her left upper extremity. She has got proximal muscle weakness, deconditioning, debility, impaired mobility, gait disturbance, functional impairment. She is a high risk for fall and self-care deficits. These are all barriers to her discharge home safely at this time. She lives at home with her daughter in an apartment and was independent with her ADLs and mobility. She is currently set up for mod assist for ADLs and min assist to mod assist with her mobility. She and her daughter would like for her to return home at her prior level of functioning or better. Comorbidities include acute falls, schizoaffective disorder, bipolar, seizure disorder, musculoskeletal pain, fracture of the radial neck, right lower lobe pneumonia, hypertensive emergency, falls, chronic hypertension, dementia, history of TIAs, and blindness. PAST MEDICAL HISTORY: Significant for TIAs, blindness in both eyes. She has had stents in the past. Noncompliance with blood pressure medicine. She has had arthritis. PAST SURGICAL HISTORY: Includes hysterectomy. She has had her gallbladder removed. ALLERGIES: EFFEXOR, MORPHINE, AND TALWIN. CURRENT MEDICATIONS: Include B12 at 1000 mcg daily, vitamin D 5000 units daily, aspirin 325 daily, amlodipine 5 mg daily, Protonix 40 mg daily, trazodone 150 mg at bedtime, Depakote 500 mg b.i.d., tramadol 50 mg every 6 hours p.r.n., and Catapres 0.1 mg every 4 hours p.r.n. HABITS: No alcohol or tobacco use. FAMILY HISTORY: Noncontributory. SOCIAL HISTORY: The patient hopes to return back home and get back to her prior HISTORY AND PHYSICAL [id number] LULU SLATER A level of functioning. REVIEW OF SYSTEMS: Really difficult to obtain in this patient as she does seem to have some confusion and flight of ideas this morning. PHYSICAL EXAMINATION: VITAL SIGNS: Stable. She is afebrile. GENERAL: An elderly female, in no acute distress. HEENT: Normocephalic and atraumatic. Mucosa moist. NECK: Supple. No lymphadenopathy. LUNGS: Clear in the upper messer. No wheeze, rhonchi, or rales. HEART: Regular rate and rhythm. No murmurs, rubs or gallops. ABDOMEN: Soft, benign, nondistended. Positive bowel sounds times 4. EXTREMITIES: No clubbing, cyanosis or edema. NEUROLOGIC: She has some difficulty with following orders. Hard to ascertain her true weakness. LABORATORY DATA: White count is 5.9, H&H of 12 and 39, and platelet count is 135. Sodium is 142, potassium 4.1, BUN and creatinine of 16 and 0.5, and blood sugar is noted to be 82. ASSESSMENT: This is a 74-year-old female patient admitted to the rehab with a working diagnosis of disuse myopathy. The patient has potential to make improvement. We will institute the following multidisciplinary therapies including, but not limited to, physical, occupational, respiratory, speech, nutritional services, prosthetics, and orthotics. Given her complex medical condition and risks for more complications, rehabilitation services cannot be provided at a lower level of care such as a skilled nurse facility. PLAN: 1. Admit to [facility] for an inpatient therapy to include the following disciplines; A. Physical therapy to improve gait, all transfer skills, and bed mobility to modified independent level. B. Occupational therapy to modified independent level. C. Case management to assist with discharge planning and placement options. D. Nutrition to assist with nutritional needs. E. Rehabilitation nursing to assist in monitoring the patient's underlying medical conditions and to assist with any type of bowel or bladder management. 2. The patient's current medications and medical care will be continued. 3. The patient will be placed on standard fall precautions. 4. The patient's estimated length of stay is approximately 7-10 days. 5. We will discuss this patient during care team staff meeting this week. TRANSINT:[id number] Voice Confirmation ID: [id number] DOCUMENT ID: [id number] GLORIA notes whether there has been none or any medical/functional change since admission: - No change since preadmission screen. GLORIA attests patient continues to be appropriate for IRF: - Continues to be appropriate. HISTORY AND PHYSICAL [id number] LULU SLATER,JACK JOY MD at 1001 CC: [id number] DICTATION DATE: 05/04/19902 INSULATION WORKER APPRENTICE: 05/04/19 0951 ADM IN [place] [id number] [place] [id number]
--- NOTE | 2019-05-14 14:01 | NUR ---
Nutrition Follow-up: Diet: Cardiac + Ensure TID PO intake: ~61% average x last 9 meals recorded; reports appetite has been down today. Daughter states that pt ate a honey bun that she brought for her. She is drinking Ensure. Last BM: 05/14/19. Wt: 137# (05/04/19), no new wt Labs, meds, and nursing skin assessment reviewed. Continue current nutrition regimen. Encourage PO intake. RD Following.
--- NOTE | 2019-05-14 15:04 | NUR ---
FORMS FAXED TO [facility]FOR PATIENT TO ADMITT TO A SNF. WILL CONTINUE TO FOLLOW WITH PATIENT.
--- NOTE | 2019-05-14 15:11 | NUR ---
PT RESTING IN BED WITH EYES OPEN CALL LIGHT IN REACH NO PROBLEMS WILL MONITER
--- NOTE | 2019-05-14 18:52 | NUR ---
PT RESTING IN BED CALL LIGHT IN REACH NO PROBLEMS WILL MONITER
--- NOTE | 2019-05-14 19:36 | NUR ---
GREETED PATIENT AND INTRODUCED MYSELF. PATIENT IS LISTENING TO TV AT THIS TIME. RESPIRATIIONS EVEN. NO S/S OF DISTRESS. MODIFIED CALL LIGHT IN REACH. DENIES ANY FURTHER NEEDS AT THIS TIME.
[2019-05-14 21:12] VITALS: BP 158/47
--- NOTE | 2019-05-15 02:38 | NUR ---
PT. RESTING QUIETLY WITH EYES CLOSED. RESPIRATIONS EVEN. NO S/S OF DISTRESS. CALL LIGHT IN REACH.
--- NOTE | 2019-05-15 07:54 | NUR ---
IN THERAPY AT THIS TIME. EATING BREAKFAST IN THERAPY ROOM.
[2019-05-15 08:27] VITALS: BP 138/78
--- NOTE | 2019-05-15 09:58 | NUR ---
SHOWER GIVEN PER NURSING.
--- NOTE | 2019-05-15 12:23 | NUR ---
SITTING IN WC EATING LUNCH. NO C/O PAIN. CHAIR ALARM ON. CL IN REACH.
--- NOTE | 2019-05-15 16:33 | NUR ---
NO CHANGE IN ASSESSMENT. NO DISTRESS NOTED. CL IN REACH.
--- NOTE | 2019-05-15 19:31 | NUR ---
GREETED PATIENT AND INTRODUCED MYSELF HER NURSE. PATIENT IS LAYING IN BED LISTENING TO TV AT THIS TIME. RESPIRATIONS EVEN. NO S/S OF DISTRESS. DENIES ANY NEEDS AT THIS TIME. CALL LIGHT IN REACH.
[2019-05-15 21:36] VITALS: BP 152/50
--- NOTE | 2019-05-16 01:30 | NUR ---
PT. RESTING QUIETLY WITH EYES CLOSED. RESPIRATIONS EVEN. NO S/S OF DISTRESS. SR UP X 2. BED IN LOWEST POSITION. MODIFIED CALL LIGHT IN REACH.
--- NOTE | 2019-05-16 05:57 | NUR ---
PT. RESTING QUIETLY WITH EYES CLOSED AFTER ADMINISTRATION OF MORNING MEDICATIONS. RESPIRATIONS EVEN. NO S/S OF DISTRESS. MODIFIED CALL LIGHT IN REACH.
[2019-05-16 06:21] LABS: CALC OSMOLALITY 286 mosm/kg (275-300); CALCIUM 8.8 mg/dL (8.5-10.1); CARBON DIOXIDE 35.9 mmol/L (21.0-32.0); CHLORIDE - SERUM 105 mmol/L (98-107); CREATININE - SERUM 0.6 mg/dL (0.6-1.3); GLUCOSE 85 mg/dL (74-106); POTASSIUM - SERUM 4.2 mmol/L (3.5-5.1); SODIUM 143 mmol/L (136-145); UREA NITROGEN 20 mg/dL (7-18); eGFR NON AFRICAN AMERICAN > 90 mL/min (90-120)
[2019-05-16 06:22] LABS: BASOPHILS 0.2 % (0-2); EOSINOPHILS 7.2 % (0-7); HEMATOCRIT 38.7 % (36.0-48.0); HEMOGLOBIN 12.2 g/dL (12-16); IMMATURE GRANULOCYTES 0.2 % (0-5); LYMPHOCYTES 35.4 % (15-50); MCHC 31.5 g/dL (31.0-37.0); MCV 95.3 fL (80.0-100.0); MEAN PLATELET VOLUME 11.5 fL (7.4-10.4); MONOCYTES 13.3 % (2-11); NEUTROPHILS 43.7 % (40-80); PLATELET COUNT 182 10x3/uL (130-400); RBC 4.06 10x6/uL (4.00-5.40); RDW 12.9 % (11.5-14.5); WBC 4.6 10x3/uL (4.8-10.8)
[2019-05-16 08:34] VITALS: BP 113/56
--- NOTE | 2019-05-16 09:27 | NUR ---
[facility], REFERRAL FAXED TO THE [facility] FOR POSSIBLE ADMISSION. WILL CONTINUE TO FOLLOW WITH PATIENT
--- NOTE | 2019-05-16 10:07 | NUR ---
SAT IN WC FOR BREAKFAST. NO C/O PAIN AT THIS TIME. CL IN REACH.
--- NOTE | 2019-05-16 11:00 | NUR ---
I have reviewed this patient and I concur with the Shift Assessment completed by the Licensed Practical Nurse today this shift.
--- NOTE | 2019-05-16 11:26 | NUR ---
PATIENT HAS BEEN ACCEPTED TO THE [facility] AND WILL DISCHARGE THERE 05/17/19 VIA FACILITY VAN. WILL CONTINUE TO FOLLOW WITH PATIENT.
--- NOTE | 2019-05-16 11:54 | NUR ---
PATIENT SITTING UP IN WHEELCHAIR FOR LUNCH. DAUGHTER AND GRAND DAUGHTER IN ROOM VISITING. CALL LIGHT WITHIN REACH. VOICES NO NEEDS AT THIS TIME.
--- NOTE | 2019-05-16 19:11 | NUR ---
GREETED PATIENT AND INTRODUCED MYSELF HER NURSE. PATIENT IS LAYING IN BED RESTING QUIETLY AT THIS TIME. RESPIRATIONS EVEN. NO S/S OF DISTRESS. DENIES ANY FURTHER NEEDS AT THIS TIME. CALL LIGHT IN REACH.
[2019-05-16 19:30] VITALS: BP 169/46
--- NOTE | 2019-05-16 23:42 | NUR ---
PT. RESTING QUIETLY WITH EYES CLOSED. RESPIRATIONS EVEN. NO S/S OF DISTRESS. MODIFIED CALL LIGHT IN REACH. SR UP X 2. BED IN LOWEST POSITION. BED ALARM ON AND WORKING PROPERLY.
[2019-05-17 08:00] VITALS: BP 126/70
--- NOTE | 2019-05-17 08:15 | NUR ---
PT RESTING IN BED WITH EYES OPEN CALL LIGHT IN REACH NO PROBLEMS WILL MONITER
--- NOTE | 2019-05-17 09:25 | NUR ---
PATIENT DISCHARGING TO THE [facility] AND FAMILY WILL TRANSPORT HER THERE VIA FAMILY CAR. NO HOME HEALTH OR DME NEEDED AT THIS TIME. AN APPOINTMENT WITH DR. FUENTES WILL BE MADE AT TIME OF DSIHCARGE FROM FACILITY WHEN DISCHARGED. DR. PARDO 05/24/19 @ 10:30. PATIENT CHOICE FORM (HAND OUT GIVEN ) AND [facility] FORMS SINGED, COPY GIVEN TO PATIENT DAUGHTER AND FILED IN CHART. DISCHARGE INSTRUCTIONS FAXED TO PCP, SNF AND REVIEWED WITH PATIENT AND DAUGHTER.
--- NOTE | 2019-05-17 11:17 | NUR ---
PT DISCHARGED TO [facility] WITH DAUGHTER REPORT CALLED DISCHARGE SUMMARY AND MEDS SENT WITH PT AND SCRIPT FOR ULTRAM
== END 2019-05-17 11:20 | DRG 91 ==
LOC: D.REHAB 16:54
PROVIDERS: ADMIT Emergency Medicine; ATTEND Emergency Medicine
DX: G72.89 Other specified myopathies (principal); J18.1 Lobar pneumonia, unspecified organism; I16.1 Hypertensive emergency; S52.132D Displaced fracture of neck of left radius, subsequent encounter for closed fracture with routine healing; W19.XXXD Unspecified fall, subsequent encounter; F25.9 Schizoaffective disorder, unspecified; F31.9 Bipolar disorder, unspecified; G40.909 Epilepsy, unspecified, not intractable, without status epilepticus; M79.18 Myalgia, other site; F03.90 Unspecified dementia, unspecified severity, without behavioral disturbance, psychotic disturbance, mood disturbance, and anxiety; R53.1 Weakness; M19.90 Unspecified osteoarthritis, unspecified site; H54.7 Unspecified visual loss